=== PATIENT | female | born 1990 | race Caucasian/White ===

== ENCOUNTER → 2021-09-04 17:15 | Outpatient (BNVA) | payer BC, SELFPAY | PROVIDERS: Family Provider Family Medicine; PCP Nurse Practitioner Family; Visit Provider Registered Nurse Neonatal Intensive Care | DX: M79.672 Pain in left foot (principal); R29.898 Other symptoms and signs involving the musculoskeletal system | CPT/HCPCS: 73630 ==

== ENCOUNTER → 2021-09-24 08:08 | Outpatient (BNVA) | payer BC, SELFPAY | PROVIDERS: Family Provider Family Medicine; PCP Nurse Practitioner Family; Visit Provider Podiatrist Foot & Ankle Surgery | DX: M79.672 Pain in left foot (principal) | CPT/HCPCS: 73630 ==

== ENCOUNTER → 2022-10-31 09:58 | Outpatient (BNVA) | payer BC, SELFPAY | PROVIDERS: Family Provider Family Medicine; Visit Provider Nurse Practitioner | DX: R53.83 Other fatigue (principal); F41.9 Anxiety disorder, unspecified; K21.9 Gastro-esophageal reflux disease without esophagitis | CPT/HCPCS: 84443; 85025 ==

== ENCOUNTER → 2024-07-28 10:43 | Outpatient (BNVA) | payer BC, SELFPAY | PROVIDERS: Family Provider Family Medicine; PCP Nurse Practitioner Family; Visit Provider Nurse Practitioner Family | DX: Z13.6 Encounter for screening for cardiovascular disorders (principal); T78.40XA Allergy, unspecified, initial encounter; Z79.899 Other long term (current) drug therapy; Z91.018 Allergy to other foods | CPT/HCPCS: 80053; 80061; 81003; 82785; 83036; 84443; 85025; 86001; 86003 ==

== ENCOUNTER → 2024-08-01 11:28 | Outpatient (BNVA) | payer BC, SELFPAY | PROVIDERS: Family Provider Family Medicine; PCP Nurse Practitioner Family; Visit Provider Nurse Practitioner Family | DX: Z91.018 Allergy to other foods (principal) | CPT/HCPCS: 86003; 86008 ==

== ENCOUNTER → 2024-09-10 17:59 | Outpatient (BNVA) | payer BC, SELFPAY | PROVIDERS: Family Provider Family Medicine; PCP Nurse Practitioner Family; Visit Provider Emergency Medicine | DX: R39.9 Unspecified symptoms and signs involving the genitourinary system (principal) | CPT/HCPCS: 81000 ==

== ENCOUNTER 2025-04-08 06:00 | Emergency (ER) | payer BC, SELFPAY ==
--- OUTSIDE RECORDS SUMMARY | 2025-04-08 06:08 | XMS_ITS | Encounter Summary ---
Author Organization [facility] Address [address] [place] [address] Care Team Providers Care Oncology Physician Name Role Phone María Elena Mckeon MD Primary Care Provider +1- [phone] Encounter Details Date Type Department Care Team (Latest Contact Info) Description 07/30/2005 Outpatient Historical [facility] Family Medicine- [address] [place] [address] Chanelle Koroma, DREA NO ADDRESS ON FILE ACUTE PHARYNGITIS (Primary Dx); LYMPHADENITIS NOS Social History Tobacco Use Types Packs/Day Years Used Date Smoking Tobacco: Never Assessed Comments Unknown Sex and Gender Information Value Date Recorded Sex Assigned at Not on file Legal Sex Female 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
--- OUTSIDE RECORDS SUMMARY | 2025-04-08 06:08 | XMS_ITS | Encounter Summary ---
Author Organization [facility] Address [address] [place] [address] Care Team Providers Care Assistant Associate Full Professor Name Role Phone María Elena Mckeon MD Primary Care Provider +1- [phone] Encounter Details Date Type Department Care Team (Late st Contact Info) Description 06/30/2008 Outpatient [facility] [address] [place] [address] María Elena Mckeon MD [address] [place] [address] State, Incidental Social History Tobacco Use Types Packs/Day Years Used Date Smoking Tobacco: Never Assessed Comments Yes Sex and Gender Information Value Date Recorded Sex Assigned at Not on file Legal 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 Gender Identity Not on file Sexual Orientation Not on file documented as of this encounter Plan of Treatment Not on file documented as of this encounter Procedures Procedure Name Priority Date/Time Associated Diagnosis Comments GC, GENITAL Routine 06/30/2008 2:21 PM CDT CHLAMYDIA, GENITAL Routine 06/30/2008 2: 21 PM CDT PATHOLOGY Routine 06/30/2008 8:42 AM CDT documented in this encounter Results * GC DNA AMPLIFICATION (06/30/2008 2:21 PM CDT) FINAL REPORT DNA Amplification Assay: negative for Neisseria gonorrhoeae The [facility] [employer] CT/NG test by Polymerase Chain Reaction (PCR) is approved for testing only on endocervical and male urethral swab specimens and male urine. The use of specimens from any other body site has not been validated. Detection of Neisseria gonorrhoeae is dependent on the number of organisms present in the specimen. This may be affected by patient factors, stage of infection, specimen collection methods, transport, storage and processing procedures. INTERFACE SYSTEM Specimen from genital system (specimen) CERVIX UTERI STRUCTURE / Unknown 06/30/2008 2:21 PM CDT 07/01/2008 2:56 PM CDT María Elena Mckeon MD MICROBIOLOGY - GENERAL ORD ERABLES Final Result Performing Organization Address [facility] de Phone Number INTERFACE SYSTEM Refer to clinic/hospital department * CHLAMYDIA DNA AMPLIFICATION (06/30/2008 2:21 PM CDT) FINAL REPORT DNA Amplification Assay: negative for Chlamydia trachomatis --------- The [facility] [employer] CT/NG test by Polymerase Chain Reaction (PCR) is approved for testing only on endocervical and male urethral swab specimens and urine. The use of specimens from any other body site has not been validated. Dectection of Chlamadia trachomatis is dependent on the number of organisms present in the specimen. This may be affected by patient factors, stage of infection, specimen collection methods, transport, storage and processing procedures. INTERFACE SYSTEM Specimen from genital system (specimen) CERVIX UTERI STRUCTURE / Unknown 06/30/2008 2:21 PM CDT 07/01/2008 2:56 PM CDT María Elena Mckeon MD MICROBIOLOGY - GENERAL ORD ERABLES Final Result INTERFACE SYSTEM Refer to clinic/hospital department * PATHOLOGY (06/30/2008 8:42 AM CDT) PATHOLOGY/CYT OLOGY REPORT [facility] Anatomic Pathology Dept [address] [address] Patient: ISABELLE TORRES Accn No: [id number] Collected: 06/30/2008 8:42:00 AM CYTOLOGY FIRING PIN GAUGER FINAL REPORT - - THIN PREP PAP History Specimen Source: None Provided LMP: None Provided Last Pap Date: None Provided Specimen Adequacy Satisfactory for interpretation. The smear lacks endocervical or metaplastic cells. Diagnosis NEGATIVE FOR INTRAEPITHELIAL LESION OR MALIGNANCY. (Previously noted as Within Normal Limits) Chemist Biological: REBECA 07/05/08 Completed by: KARLENE ZAFAR BSLEANNE(ASCP) (Electronically signed by) 07/05/08 Comment Repeat Pap smear within 6-12 months. Important Info About PAP Smears HPV Testing off the Thin Prep vial can be done as a means of further evaluating the significance of a Thin Prep Report. For information about ordering the HPV test phone Cytology at . Treatment or follow-up recommendations (if any) that are contained within this report are based upon general recommendations as contained in 2001 Consensus Guidelines For Cervical Cytological Abnormalities [place]: January 26, 2002, and are provided as a general guideline rather than as a specific recommendation. Final decisions about the most appropriate treatment and follow-up should be made on an individualized basis by the treating physician in consultation with his/her patient. INTERFACE SYSTEM 06/30/2008 8:42 AM CDT us María Elena Mckeon MD PATHOLOGY/CYTOLOGY ORDERAB LES Edited INTERFACE SYSTEM Refer to clinic/hospital department documented in this encounter Visit Diagnoses Diagnosis state, incidental documented in this encounter Care Teams Assistant Associate Full Professor Relationship Specialty Start Date End Date María Elena Mckeon MD PCP - General 03/02/09 documented as of this encounter
--- OUTSIDE RECORDS SUMMARY | 2025-04-08 06:08 | XMS_ITS | Encounter Summary ---
Author Organization [facility] Address [address] [place] [address] Care Team Providers Care Color Matcher Name Role Phone María Elena Mckeon MD Primary Care Provider +1- [phone] Encounter Details Date Type Department Care Team (Latest Contact Info) Description 09/09/1999 Outpatient Historical [facility] Medicine [address] [address] Domenic Barton DO NO ADDRESS ON FILE Acute pharyngitis (Primary Dx) Social History Tobacco Use Types Packs/Day Years Used Date Smoking Tobacco: Never Assessed Comments Unknown Sex and Gender Information Value Date Recorded Sex Assigned at Not on file 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
--- OUTSIDE RECORDS SUMMARY | 2025-04-08 06:08 | XMS_ITS | Encounter Summary ---
Author Organization [facility] Address [address] [place] [address] Care Team Providers Care Manager Of International Name Role Phone María Elena Mckeon MD Primary Care Provider +1- [phone] Encounter Details Date Type Department Care Team (Latest Contact Info) Description 05/20/2000 Outpatient Historical [facility] Medicine- [address] [place] [address] Domenic Barton DO NO ADDRESS ON FILE Dermatophytosis of unspecified site (Primary Dx); Viral warts, unspecified; Abnormal weight gain Social History Tobacco Use Types Packs/Day Years Used Date Smoking Tobacco: Never Assessed Comments Unknown Sex and Gender Information Value Date Recorded Sex Assigned at Not on file Legal Sex Female 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
--- OUTSIDE RECORDS SUMMARY | 2025-04-08 06:08 | XMS_ITS | Encounter Summary ---
Author Organization [facility] Address [address] [place] [address] Care Team Providers Care Train Starter Name Role Phone María Elena Mckeon MD Primary Care Provider +1- [phone] Encounter Details Date Type Department Care Team (Latest Contact Info) Description 12/14/2002 Outpatient Historical [facility] Medicine- [address] [place] [address] Domenic Barton DO NO ADDRESS ON FILE SKIN ANOMALY NEC (Primary Dx); ACNE NEC Social History Tobacco Use Types Packs/Day Years Used Date Smoking Tobacco: Never Assessed Comments Unknown Sex and Gender Information Value Date Recorded Sex Assigned at Not on file Legal Sex Female 3:00 AM QUALITY LAB ASSOC Gender Identity Not on file Sexual Orientation Not on file documented as of this encounter Plan of Treatment Not on file documented as of this encounter Visit Diagnoses Diagnosis Other specified congenital anomaly of skin- Primary Other acne documented in this encounter Care Teams Train Starter Relationship Specialty Start Date End Date María Elena Mckeon MD PCP - General 03/02/09 documented as of this encounter
--- OUTSIDE RECORDS SUMMARY | 2025-04-08 06:08 | XMS_ITS | Encounter Summary ---
Author Organization [facility] Address [address] [place] [address] Care Team Providers Care Taffy Candy Maker Name Role Phone María Elena Mckeon MD Primary Care Provider +1- [phone] Encounter Details Date Type Department Care Team (Latest Contact Info) Description 07/25/1999 Outpatient Historical [facility] Medicine [address] [address] Monica Garibay NO ADDRESS ON FILE Head injury, unspecified (Primary Dx) Social History Tobacco Use Types Packs/Day Years Used Date Smoking Tobacco: Never Assessed Comments Unknown Sex and Gender Information Value Date Recorded Sex Assigned at Not on file Legal 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
--- OUTSIDE RECORDS SUMMARY | 2025-04-08 06:08 | XMS_ITS | Encounter Summary ---
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
--- OUTSIDE RECORDS SUMMARY | 2025-04-08 06:08 | XMS_ITS | Encounter Summary ---
Author Organization [facility] Address [address] [place] [address] Care Team Providers Care Builder Operator Name Role Phone María Elena Mckeon MD Primary Care Provider +1- [phone] Encounter Details Date Type Department Care Team (Latest Contact Info) Description 07/21/2005 Outpatient Historical [facility] Medicine [address] [address] Chanelle Koroma NP NO ADDRESS ON FILE ACUTE PHARYNGITIS (Primary Dx); ACUTE SINUSITIS NOS Social History Tobacco Use Types Packs/Day Years Used Date Smoking Tobacco: Never Assessed Comments Unknown Sex and Gender Information Value Date Recorded Sex Assigned at Not on file Legal 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
--- OUTSIDE RECORDS SUMMARY | 2025-04-08 06:08 | XMS_ITS | Encounter Summary ---
Author Organization [facility] Address [address] [place] [address] Care Team Providers Care Large Animal Veterinarian Name Role Phone María Elena Mckeon MD Primary Care Provider +1- [phone] Encounter Details Date Type Department Care Team (Latest Contact Info) Description 09/12/2005 Outpatient Historical [facility] [place] [address] [place] [address] Nic Barton MD NO ADDRESS ON FILE ABDOMINAL PAIN UNSPEC SITE (Primary Dx) Social History Tobacco Use Types Packs/Day Years Used Date Smoking Tobacco: Never Assessed Comments Unknown Sex and Gender Information Value Date Recorded Sex Assigned at Not on file Legal Sex Female 3:00 AM PROMOTIONAL REPRESENTATIVE Gender Identity Not on file Sexual Orientation Not on file documented as of this encounter Plan of Treatment Not on file documented as of this encounter Procedures Procedure Name Priority Date/Time Associated Diagnosis Comments DIFFERENTIAL, MANUAL Routine 09/12/2005 4:25 PM PROMOTIONAL REPRESENTATIVE CBC WITH DIFFERENTIAL Routine 09/12/2005 4:25 PM PROMOTIONAL REPRESENTATIVE SEDIMENTATION RATE Routine 09/12/2005 4: 25 PM PROMOTIONAL REPRESENTATIVE C-REACTIVE PROTEIN Routine 09/12/2005 4: 25 PM PROMOTIONAL REPRESENTATIVE documented in this encounter Results * C-REACTIVE PROTEIN (09/12/2005 4:25 PM PROMOTIONAL REPRESENTATIVE) CRP <0.3 0.0 - 1.0 mg/dL INTERFACE SYSTEM Comment: This is a standard CRP method, and is not intended as a marker for Heart Disease This test cannot be used to assess cardiac risk. As of 05/27/2004, the linearity on CRP has been changed to 0.3-11.0 mg/dl. The past range was 0.7-11.0 mg/dl. 09/12/2005 4:25 PM PROMOTIONAL REPRESENTATIVE Nic Barton MD CHEMISTRY ORDERABLES Final Result Performing Organization Address [facility] Phone Number INTERFACE SYSTEM Refer to clinic/hospital department * DIFFERENTIAL, MANUAL (09/12/2005 4:25 PM PROMOTIONAL REPRESENTATIVE) NEUTROPHILS, SEG 60 36 - 66 % INT ERFACE SYSTEM LYMPHOCYTES 30 24 - 44 % INTERFAC E SYSTEM MONOCYTE 8 4 - 10 % INTERFACE SYSTEM EOSINOPHILS 2 0 - 3 % INTERFAC E SYSTEM PLATELET EST. Normal Normal INTERF SUSANA SYSTEM RBC MORPHOLOGY Normal Normal INTER FACE SYSTEM 09/12/2005 4:25 PM PROMOTIONAL REPRESENTATIVE Nic Barton MD HEMATOLOGY ORDERABLES COM F inal Result Performing Organization Address [facility] Phone Number INTERFACE SYSTEM Refer to clinic/hospital department * SEDIMENTATION RATE (09/12/2005 4:25 PM PROMOTIONAL REPRESENTATIVE) ESR (SEDIMENTATION RATE) 4 0 - 22 mm/hr INTERFACE SYSTEM 09/12/2005 4:25 PM PROMOTIONAL REPRESENTATIVE Nic Barton MD HEMATOLOGY ORDERABLES Final Result Performing Organization Address [facility] Phone Number INTERFACE SYSTEM Refer to clinic/hospital department * (ABNORMAL) CBC WITH DIFFERENTIAL (09/12/2005 4:25 PM PROMOTIONAL REPRESENTATIVE) WBC 8.3 4.5 - 13.5 K/ul INTERFACE SYSTEM RBC 4.55 4.30 - 5.30 Mil/ul INTERFACE SYSTEM HEMOGLOBIN 14.2 12.0 - 16.0 g/dL INTERFACE SYSTEM HEMATOCRIT 40.0 36.0 - 46.0 % INTERFACE SYSTEM MCV 87.9 78.0 - 102.0 Fl INTERFACE SYSTEM MCH 31.2 26.0 - 32.0 pg INTERFACE SYSTEM MCHC 35.5(H) 33.0 - 35.0 g/dL INTERFACE SYSTEM RDW 11.9 11.0 - 14.5 % INTERFACE SYSTEM PLATELETS 329 140 - 440 K/ul INTERFACE SYSTEM MPV 9.5 8.9 - 12.8 Fl INTERFACE SYSTEM NEUTROPHILS 58.9 42.2 - 75.2 % INTERFACE SYSTEM LYMPHOCYTES 31.5 24.0 - 44.0 % INTERFACE SYSTEM MONOCYTES 8.4(H) 4.0 - 5.0 % INTERFACE SYSTEM EOSINOPHILS 0.7 0.0 - 7.0 % INTERFACE SYSTEM BASOPHILS 0.5 0.0 - 1.0 % INTERFACE SYSTEM NEUTROPHIL ABSOLUTE 4.9 2.0 - 8.0 K/uL INTERFACE SYSTEM LYMPHOCYTE ABSOLUTE 2.6 1.2 - 4.0 K/ul INTERFACE SYSTEM MONOCYTE ABSOLUTE 0.7(H) 0.1 - 0.6 K/ul INTERFACE SYSTEM EOSINOPHIL ABSOLUTE 0.1 0.0 - 0.7 K/ul INTERFACE SYSTEM BASOPHILS ABSOLUTE 0.0 0.0 - 0.2 K/ul INTERFACE SYSTEM 09/12/2005 4:25 PM PROMOTIONAL REPRESENTATIVE us Nic Barton MD HEMATOLOGY ORDERABLES Final Result INTERFACE SYSTEM Refer to clinic/hospital department documented in this encounter Visit Diagnoses Diagnosis Abdominal pain, unspecified site- Primary documented in this encounter Care Teams Large Animal Veterinarian Relationship Specialty Start Date End Date María Elena Mckeon MD PCP - General 03/02/09 documented as of this encounter
--- OUTSIDE RECORDS SUMMARY | 2025-04-08 06:08 | XMS_ITS | Encounter Summary ---
Author Organization [facility] Address [address] [place] [address] Care Team Providers Care Wood Experimental Mechanic Name Role Phone María Elena Mckeon MD Primary Care Provider +1- [phone] Encounter Details Date Type Department Care Team (Latest Contact Info) Description 07/03/2006 Outpatient Historical [facility] Medicine [address] [phone] Nima Lynne MD NO ADDRESS ON FILE Unspecified Otitis Media (Primary Dx); Unspecified Infective Otitis Externa; Dysfunct Eustachian Tube Social History Tobacco Use Types Packs/Day Years Used Date Smoking Tobacco: Never Assessed Comments Unknown Sex and Gender Information Value Date Recorded Sex Assigned at Not on file Legal Sex Female 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
--- OUTSIDE RECORDS SUMMARY | 2025-04-08 06:08 | XMS_ITS | Encounter Summary ---
Author Organization [facility] Address [address] [place] [address] Care Team Providers Care Air Force Pilot Name Role Phone María Elena Mckeon MD Primary Care Provider +1- [phone] Encounter Details Date Type Department Care Team (Latest Contact Info) Description 09/21/2002 Outpatient Historical [facility] Family Medicine- [address] [place] [address] Domenic Barton, NO ADDRESS ON FILE Hypertrophy tonsils (Primary Dx) Social History Tobacco Use Types Packs/Day Years Used Date Smoking Tobacco: Never Assessed Comments Unknown Sex and Gender Information Value Date Recorded Sex Assigned at Not on file Legal Sex Female 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
--- OUTSIDE RECORDS SUMMARY | 2025-04-08 06:08 | XMS_ITS | Encounter Summary ---
Author Organization [facility] Address [address] [place] [address] Care Team Providers Care Amphibious Operations Officer Name Role Phone María Elena Mckeon MD Primary Care Provider +1- [phone] Encounter Details Date Type Department Care Team (Latest Contact Info) Description 11/20/2005 Outpatient Historical [facility] Medicine [address] [phone] Arlene Murcia, BUSINESS STRATEGIST [address] [place] [address] ACUTE URI NOS (Primary Dx) Social History Tobacco Use Types Packs/Day Years Used Date Smoking Tobacco: Never Assessed Comments Unknown Sex and Gender Information Value Date Recorded Sex Assigned at Not on file Legal 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
--- OUTSIDE RECORDS SUMMARY | 2025-04-08 06:08 | XMS_ITS | Encounter Summary ---
Author Organization [facility] Address [address] [place] [address] Care Team Providers Care Head Field Hockey Coach Name Role Phone María Elena Mckeon MD Primary Care Provider +1- [phone] Encounter Details Date Type Department Care Team (Latest Contact Info) Description 05/13/[address] [facility] Family Medicine- [address] [place] [address] Monica Garibay NO ADDRESS ON FILE Injury, other and unspecified, elbow, forearm, and wrist (Primary Dx) Social History Tobacco Use Types Packs/Day Years Used Date Smoking Tobacco: Never Assessed Comments Unknown Sex and Gender Information Value Date Recorded Sex Assigned at Not on file Legal Sex Female 3:00 AM AOC OPERATIONS INTELLIGENCE OFFICER Gender Identity Not on file Sexual Orientation Not on file documented as of this encounter Plan of Treatment Not on file documented as of this encounter Visit Diagnoses Diagnosis Injury, other and unspecified, elbow, forearm, and wrist- Primary documented in this encounter Care Teams Head Field Hockey Coach Relationship Specialty Start Date End Date María Elena Mckeon MD PCP - General 03/02/09 documented as of this encounter
--- OUTSIDE RECORDS SUMMARY | 2025-04-08 06:08 | XMS_ITS | Encounter Summary ---
Author Organization [facility] Address [address] [place] [address] Care Team Providers Care Soft Sugar Operator Head Name Role Phone María Elena Mckeon MD Primary Care Provider +1- [phone] Encounter Details Date Type Department Care Team (Latest Contact Info) Description 10/22/1999 Outpatient Historical [facility] Medicine [address] [phone] Nima Villalta MD [address] [facility] [address] [place] [address] Streptococcal sore throat (Primary Dx); Hypertrophy tonsils; Allergic rhinitis, cause unspecified Social History Tobacco Use Types Packs/Day Years Used Date Smoking Tobacco: Never Assessed Comments Unknown Sex and Gender Information Value Date Recorded Sex Assigned at Not on file Legal Sex Female 3:00 AM MANAGEMENT ENGINEER Gender Identity Not on file Sexual Orientation Not on file documented as of this encounter Plan of Treatment Not on file documented as of this encounter Visit Diagnoses Diagnosis Streptococcal sore throat- Primary Hypertrophy tonsils Hypertrophy of tonsils alone Allergic rhinitis, cause unspecified documented in this encounter Care Teams Soft Sugar Operator Head Relationship Specialty Start Date End Date María Elena Mckeon MD PCP - General 03/02/09 documented as of this encounter
--- OUTSIDE RECORDS SUMMARY | 2025-04-08 06:08 | XMS_ITS | Encounter Summary ---
Author Organization [facility] Address [address] [place] [address] Care Team Providers Care Patient Case Coordinator Name Role Phone María Elena Mckeon MD Primary Care Provider +1- [phone] Encounter Details Date Type Department Care Team (Latest Contact Info) Description 08/06/1999 Outpatient Historical [facility] Medicine [address] [address] Domenic Barton DO NO ADDRESS ON FILE Hypertrophy tonsils (Primary Dx); Allergic rhinitis, cause unspecified Social History Tobacco Use Types Packs/Day Years Used Date Smoking Tobacco: Never Assessed Comments Unknown Sex and Gender Information Value Date Recorded Sex Assigned at Not on file Legal Sex Female 3:00 AM MEDIA CONSULTANT OUTSIDE SALES Gender Identity Not on file Sexual Orientation Not on file documented as of this encounter Plan of Treatment Not on file documented as of this encounter Visit Diagnoses Diagnosis Hypertrophy tonsils- Primary Hypertrophy of tonsils alone Allergic rhinitis, cause unspecified documented in this encounter Care Teams Patient Case Coordinator Relationship Specialty Start Date End Date María Elena Mckeon MD PCP - General 03/02/09 documented as of this encounter
--- OUTSIDE RECORDS SUMMARY | 2025-04-08 06:08 | XMS_ITS | Clinical Summary ---
Author Organization [facility] Address [address] Manuel: Epic Prelude ADT [place] PLUMMER [address] Care Team Providers Care Senior Technical Business Analyst Name Role Phone María Elena Mckeon MD Primary Care Provider +1- [phone] Allergies No known active allergies Medications polyethylene glycol 3350 (MIRALAX) 17 gram/dose PowderIndications :Constipation, unspecified constipation type Take 1 SCOOP (17 Grams) by mouth daily Dissolve in 8 ounces of fluid and drink entire liquid. 527 Gram 3 7 Active promethazine (PHENERGAN) 25 mg tablet Take 1 Tablet (25 mg) by mouth every 6 hours as needed for Nausea/Emesis . 30 Tablet 0 7 Active docusate sodium (COLACE) 100 mg capsuleIndication s:Constipation, unspecified constipation type Take 1 Capsule (100 mg) by mouth 2 times daily. 60 Capsule 3 7 Active acetaminophen (TYLENOL) 325 mg tablet Take 325 mg by mouth every 4 hours as needed. 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 Resolved Problems Problem Noted Date Diagnosed Date Resolved Date Encounter for supervision of normal in first trimester 12/19/2016 01/31/2017 Encounter for supervision of normal in first trimester 11/23/2016 12/19/2016 Acne vulgaris 04/12/2015 11/23/2016 Melasma 04/12/2015 12/19/2016 IUD (intrauterine device) in place 09/05/2009 03/27/2014 Overview (01/30/2021): Mirena placed 04/03/09 Well woman exam with routine gynecological exam 09/05/2009 03/27/2014 Contraception 03/06/2009 03/27/2014 Supervision of normal first 07/06/2008 03/06/2009 Encounters Date Type Department Care Team Description 02/14/2025 9:42 PM CDT - 02/14/2025 10:33 PM CDT Emergency [facility] Emergency Medicine [address] [place] [address] Chris Portillo MD Eye pain, left (Primary Dx) Discharge Disposition: Home or Self Care 02/14/2025 Travel from Last 3 Months Immunizations Immunization Administration Dates Next Due (M-M-R II/PRIORIX)(12 MO UP) MEASLES, MUMPS AND RUBELLA VIRUS VACCINE, 0.5 ML IM/SUBCUT 02/16/1991 Dt Dtp Dtap Vaccine 05/26/1995, 1,08/25/1990,1989,02/17/1990 HIB, Unspecified Formulation 05/25/1991 Hepatitis B Vaccine 01/20/2002,08/02/2001,2000 IPV/OPV 02/16/1991,05/05/1990,02/17/1990 Influenza Vaccine Split 3+ Yrs IM 07/28/2008 Family History Medical History Relation Name Comments Healthy Brother 1 Healthy Brother 2 Heart Disease Father MA AGE 40 Other Maternal Grandfather Healthy Maternal Grandmother Other Mother epilepsy Ovarian Cancer Mother Diabetes Other pggm Pggf Heart Disease Paternal Grandfather Other Paternal Grandmother lupus Healthy Son Breast Cancer Neg Hx Colon Cancer Neg Hx Relation Name Status Comments Brother 1 Alive Brother 2 Alive Father Maternal Grandfather Alive Maternal Grandmother Alive Mother Alive Other pggm Pggf Paternal Grandfather Paternal Grandmother Alive Son Alive Social History Tobacco Use Types Packs/Day Years Used Date Smoking Tobacco: Never Smokeless Tobacco: Never Alcohol Use Standard Drinks/Week Comments No 0 (1 standard drink = 0.6 oz pur e alcohol) Feeling Safe Answer Date Recorded Are you in a relationship wi th someone who hurts you emotionally and/or physically? No 02/14/2025 Comments No Sex and Gender Information Value Date Recorded Sex Assigned at Not on file Legal Sex Female 4:10 PM WHISKEY REGAUGER Gender Identity Not on file Sexual Orientation Not on file Last Filed Vital Signs Vital Sign Reading Time Taken Comments Blood Pressure 108/87 02/14/2025 10:27 PM CDT Pulse 85 02/14/2025 10:27 PM CDT Temperature 37.4 C (99.3 F) 02/14/2025 9:44 PM CDT Respiratory Rate 16 02/14/2025 10:27 PM CDT Oxygen Saturation 97% 02/14/2025 10:27 PM CDT Inhaled Oxygen Concentration - - Weight 63 kg (138 lb 12.8 oz) 02/14/2025 9:44 PM CDT Height 157.5 cm (5' 2 ) 02/14/2025 9:44 PM CDT Body Mass Index 25.39 02/14/2025 9:44 PM CDT Plan of Treatment Health Maintenance Due Date Last Done Comments Pre-Diabetes and Diabetes Screening 1989 DTAP/TDAP/TD VACCINES (6 - Tdap) 2000 05/26/1995, 02/16/1991, 08/25/1990, Additional history exists PAP SMEAR 2019 07/16/2015 CERVICAL CANCER SCREENING 07/16/2020 HPV/Cotest (21-29) 07/16/2020 07/16/2015 HPV/Cotest (30-65) 07/16/2020 07/16/2015 INFLUENZA VACCINE (#1) 2025 07/28/2008 HEPATITIS B VACCINES Completed 01/20/2002, 08/02/2001, 06/25/2001 HPV VACCINES Aged Out No longer eligi ble based on patient's age to complete this topic Procedures Procedure Name Priority Date/Time Associated Diagnosis Comments CERV/VAG CYTOPATH, THIN PREP IMAGR RFLX HPV Routine 07/16/2015 10:31 AM CDT from Last 3 Months or Most Recently Relevant to Health Maintenance Results * CERV/VAG CYTOPATH, THIN PREP IMAGR RFLX HPV (07/16/2015 10:31 AM CDT) IH [employer] CONSULT[facility] CYTOLOGY REPORT REFLEX HPV [facility] Pathology Dept [address] [address] Patient: ISABELLE NUNES Accn No: [id number] , [id number] Collected: 07/16/2015 10:31:00 AM All cases except those with a DP prefix are performed by pathologists from [facility] at [facility]. Case type DP is performed by Dr. Pepe Troy, [facility], [facility] [address], [address] [address] (CLIA #[id number]) (Ph. [phone]). [employer] CON[facility] PAP - REFLEX HPV History Specimen Type: Endocervical LMP: 07/14/2015 Previous Pap History: 2008 NIL Specimen Adequacy Satisfactory for interpretation. The smear shows sufficient numbers of endocervical or metaplastic cells. Diagnosis NEGATIVE FOR INTRAEPITHELIAL LESION OR MALIGNANCY. (Previously noted as Within Normal Limits). Pipe Maker/ JMM Pathologist: 07/30/15 Completed by: KARLENE ZAFAR BSCT(ASCP) (Electronically signed by) 07/30/15 Comment Routine follow-up is suggested. Important Information About Pap Smears The Pap smear is associated with a low but well-documented and probably irreducible false negative rate of up to 10%. Additionally, the false positive rate for a diagnosis of invasive carcinoma or HSIL has been estimated to be approximately 1-10%. Therefore, any visible lesion on the cervix should be biopsied regardless of Pap smear findings. HPV Testing off the Thin Prep vial can be done as a means of further evaluating a Thin Prep Report. If you are a physician looking for information on ordering the HPV test, phone Virology at . Treatment or follow-up recommendations (if [...] treating physician in consultation with his/her patient. 07/30/2015 11:39 AM CDT [facility] [employer] [facility] 07/16/2015 10:3 1 AM CDT Narrative [facility] [employer] [facility] - 07/30/2015 11:39 AM CDT Cerner Ordered:IH Hydrographic Engineer Cytology Report Reflex HPV:# Bernie Chavez COMPLAINT INVESTIGATIONS OFFICER PATHOLOGY/CYTOLOGY ORDERABL ES Edited Result - Final [facility] [employer] [facility] CLIA# [id number] [address] [place] [address] [facility] [employer] [facility] CLIA # [id number] [address] [facility] [place] [address] from Last 3 Months or Most Recently Relevant to Health Maintenance [place] [address] [employer] Care Teams Senior Technical Business Analyst Relationship Specialty Start Date End Date María Elena Mckeon MD [address] [place] [address] PCP - General 03/02/09
--- OUTSIDE RECORDS SUMMARY | 2025-04-08 06:08 | XMS_ITS | Encounter Summary ---
Author Organization [facility] Address [address] [place] [address] Care Team Providers Care Detail Supervisor Name Role Phone María Elena Mckeon MD Primary Care Provider +1- [phone] Encounter Details Date Type Department Care Team (Late st Contact Info) Description 08/10/2002 Outpatient Historical [facility] Rajendra Clemons MD [address] [place], [place] [id number] UNSPEC DENTAL CARIES (Primary Dx) Social History Tobacco Use Types Packs/Day Years Used Date Smoking Tobacco: Never Assessed Comments Unknown Sex and Gender Information Value Date Recorded Sex Assigned at Not on file Legal Sex Female 3:00 AM NEGOTIATOR SALES Gender Identity Not on file Sexual Orientation Not on file documented as of this encounter Plan of Treatment Not on file documented as of this encounter Visit Diagnoses Diagnosis Unspecified dental caries- Primary documented in this encounter Care Teams Detail Supervisor Relationship Specialty Start Date End Date María Elena Mckeon MD PCP - General 03/02/09 documented as of this encounter
--- OUTSIDE RECORDS SUMMARY | 2025-04-08 06:08 | XMS_ITS | Encounter Summary ---
Author Organization [facility] Address [address] [place] [address] Care Team Providers Care Environmental Intern Name Role Phone María Elena Mckeon MD Primary Care Provider +1- [phone] Encounter Details Date Type Department Care Team (Latest Contact Info) Description 08/05/2005 Outpatient Historical [facility] Family Medicine- [address] [place] [address] Keny Canseco PA NO ADDRESS ON FILE ACUTE URI NOS (Primary Dx); ALLERGY, UNSPECIFIED Social History Tobacco Use Types Packs/Day Years Used Date Smoking Tobacco: Never Assessed Comments Unknown Sex and Gender Information Value Date Recorded Sex Assigned at Not on file Legal Sex Female 3:00 AM 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
--- OUTSIDE RECORDS SUMMARY | 2025-04-08 06:08 | XMS_ITS | Encounter Summary ---
Author Organization [facility] Address [address] [place] [address] Care Team Providers Care Taper And Floater Name Role Phone María Elena Mckeon MD Primary Care Provider +1- [phone] Encounter Details Date Type Department Care Team (Late st Contact Info) Description 07/28/2002 Outpatient Historical [facility] Rajendra Clemons MD [address] [place], [place] [id number] TOOTH POSITION ANOMALY (Primary Dx); UNSPEC DENTAL CARIES Social History Tobacco Use Types Packs/Day Years Used Date Smoking Tobacco: Never Assessed Comments Unknown Sex and Gender Information Value Date Recorded Sex Assigned at Not on file Legal Sex Female 3:00 AM 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
--- OUTSIDE RECORDS SUMMARY | 2025-04-08 06:08 | XMS_ITS | Encounter Summary ---
Author Organization [facility] Address [address] [place] [address] Care Team Providers Care Carbon Cleaner Name Role Phone María Elena Mckeon MD Primary Care Provider +1- [phone] Encounter Details Date Type Department Care Team (Latest Contact Info) Description 01/02/2000 Outpatient Historical [facility] Medicine [address] [address] Monica Garibay NO ADDRESS ON FILE Acute pharyngitis (Primary Dx); Nasal/sinus dis NEC Social History Tobacco Use Types Packs/Day Years Used Date Smoking Tobacco: Never Assessed Comments Unknown Sex and Gender Information Value Date Recorded Sex Assigned at Not on file Legal Sex Female 3:00 AM WINDOWS TECHNICAL SPECIALIST Gender Identity Not on file Sexual Orientation Not on file documented as of this encounter Plan of Treatment Not on file documented as of this encounter Visit Diagnoses Diagnosis Acute pharyngitis- Primary Nasal/sinus dis NEC Other diseases of nasal cavity and sinuses documented in this encounter Care Teams Carbon Cleaner Relationship Specialty Start Date End Date María Elena Mckeon MD PCP - General 03/02/09 documented as of this encounter
--- OUTSIDE RECORDS SUMMARY | 2025-04-08 06:08 | XMS_ITS | Encounter Summary ---
Author Organization [facility] Address [address] [place] [address] Care Team Providers Care Drying Machine Tender Name Role Phone María Elena Mckeon MD Primary Care Provider +1- [phone] Encounter Details Date Type Department Care Team (Latest Contact Info) Description 08/27/1999 Outpatient Historical [facility] Medicine [address] [phone] Nima Villalta MD [address] [facility] [address] [place] [address] Unspecified gastritis and gastroduodenitis without mention of hemorrhage (Primary Dx); Acute pharyngitis Social History Tobacco Use Types Packs/Day Years Used Date Smoking Tobacco: Never Assessed Comments Unknown Sex and Gender Information Value Date Recorded Sex Assigned at Not on file Legal Sex Female 3:00 AM MEAT HANGER Gender Identity Not on file Sexual Orientation Not on file documented as of this encounter Plan of Treatment Not on file documented as of this encounter Visit Diagnoses Diagnosis Unspecified gastritis and gastroduodenitis without mention of hemorrhage- Primary Acute pharyngitis documented in this encounter Care Teams Drying Machine Tender Relationship Specialty Start Date End Date María Elena Mckeon MD PCP - General 03/02/09 documented as of this encounter
--- OUTSIDE RECORDS SUMMARY | 2025-04-08 06:08 | XMS_ITS | Encounter Summary ---
Author Organization [facility] Address [address] [place] [address] Care Team Providers Care Hearing Aid Specialist Name Role Phone María Elena Mckeon MD Primary Care Provider +1- [phone] Encounter Details Date Type Department Care Team (Latest Contact Info) Description 04/26/2002 Outpatient Historical [facility] Medicine- [place] [address] [place] [address] Domenic Barton DO NO ADDRESS ON FILE VIRAL WARTS NOS (Primary Dx) Social History Tobacco Use Types Packs/Day Years Used Date Smoking Tobacco: Never Assessed Comments Unknown Sex and Gender Information Value Date Recorded Sex Assigned at Not on file Legal Sex Female 3:00 AM SHREDDER OPERATOR Gender Identity Not on file Sexual Orientation Not on file documented as of this encounter Plan of Treatment Not on file documented as of this encounter Visit Diagnoses Diagnosis Viral warts, unspecified- Primary documented in this encounter Care Teams Hearing Aid Specialist Relationship Specialty Start Date End Date María Elena Mckeon MD PCP - General 03/02/09 documented as of this encounter
--- OUTSIDE RECORDS SUMMARY | 2025-04-08 06:08 | XMS_ITS | Encounter Summary ---
Author Organization [facility] Address [address] [place] [address] Care Team Providers Care Wage Adjuster Name Role Phone María Elena Mckeon MD Primary Care Provider +1- [phone] Encounter Details Date Type Department Care Team (Latest Contact Info) Description 09/02/2005 Outpatient Historical [facility] Family Medicine- [address] [place] [address] Domenic Barton DO NO ADDRESS ON FILE ACUTE PHARYNGITIS (Primary Dx) Social History Tobacco Use Types Packs/Day Years Used Date Smoking Tobacco: Never Assessed Comments Unknown Sex and Gender Information Value Date Recorded Sex Assigned at Not on file Legal Sex Female 3:00 AM COMMERCIAL SPECIALIST Gender Identity Not on file Sexual Orientation Not on file documented as of this encounter Plan of Treatment Not on file documented as of this encounter Visit Diagnoses Diagnosis Acute pharyngitis- Primary documented in this encounter Care Teams Wage Adjuster Relationship Specialty Start Date End Date María Elena Mckeon MD PCP - General 03/02/09 documented as of this encounter
--- OUTSIDE RECORDS SUMMARY | 2025-04-08 06:08 | XMS_ITS | Encounter Summary ---
Author Organization [facility] Address [address] [place] [address] Care Team Providers Care Ingredient Scaler Name Role Phone María Elena Mckeon MD Primary Care Provider +1- [phone] Encounter Details Date Type Department Care Team (Latest Contact Info) Description 08/30/2002 Outpatient Historical [facility] Medicine [address] [address] Domenic Barton DO NO ADDRESS ON FILE ACUTE TONSILLITIS (Primary Dx); Hypertrophy tonsils Social History Tobacco Use Types Packs/Day Years Used Date Smoking Tobacco: Never Assessed Comments Unknown Sex and Gender Information Value Date Recorded Sex Assigned at Not on file Legal Sex Female 3:00 AM ANATOMIC PATHOLOGIST Gender Identity Not on file Sexual Orientation Not on file documented as of this encounter Plan of Treatment Not on file documented as of this encounter Visit Diagnoses Diagnosis Acute tonsillitis- Primary Hypertrophy tonsils Hypertrophy of tonsils alone documented in this encounter Care Teams Ingredient Scaler Relationship Specialty Start Date End Date María Elena Mckeon MD PCP - General 03/02/09 documented as of this encounter
--- OUTSIDE RECORDS SUMMARY | 2025-04-08 06:08 | XMS_ITS | Encounter Summary ---
Author Organization [facility] Address [address] [place] [address] Care Team Providers Care Sewer Name Role Phone María Elena Mckeon MD Primary Care Provider +1- [phone] Encounter Details Date Type Department Care Team (Latest Contact Info) Description 09/04/1999 Outpatient Historical [facility] [address] [place] [address] Monica Garibay NO ADDRESS ON FILE Vaginitis and vulvovaginitis, unspecified (Primary Dx); Dysuria Social History Tobacco Use Types Packs/Day Years Used Date Smoking Tobacco: Never Assessed Comments Unknown Sex and Gender Information Value Date Recorded Sex Assigned at Not on file Legal Sex Female 3:00 AM MANAGER INTERVENTIONAL Gender Identity Not on file Sexual Orientation Not on file documented as of this encounter Plan of Treatment Not on file documented as of this encounter Visit Diagnoses Diagnosis Vaginitis and vulvovaginitis, unspecified- Primary Dysuria documented in this encounter Care Teams Sewer Relationship Specialty Start Date End Date María Elena Mckeon MD PCP - General 03/02/09 documented as of this encounter
--- OUTSIDE RECORDS SUMMARY | 2025-04-08 06:08 | XMS_ITS | Encounter Summary ---
Author Organization [facility] Address [address] [place] [address] Care Team Providers Care Label Sewer Name Role Phone María Elena Mckeon MD Primary Care Provider +1- [phone] Encounter Details Date Type Department Care Team (Latest Contact Info) Description 07/14/2005 Outpatient Historical [facility] Medicine [address] [address] Domenic Barton DO NO ADDRESS ON FILE CONSTIPATION NOS (Primary Dx); ABDOMINAL PAIN UNSPEC SITE Social History Tobacco Use Types Packs/Day Years Used Date Smoking Tobacco: Never Assessed Comments Unknown Sex and Gender Information Value Date Recorded Sex Assigned at Not on file Legal Sex Female 3:00 AM DYNAMO REPAIRER Gender Identity Not on file Sexual Orientation Not on file documented as of this encounter Plan of Treatment Not on file documented as of this encounter Visit Diagnoses Diagnosis Unspecified constipation- Primary Abdominal pain, unspecified site documented in this encounter Care Teams Label Sewer Relationship Specialty Start Date End Date María Elena Mckeon MD PCP - General 03/02/09 documented as of this encounter
--- OUTSIDE RECORDS SUMMARY | 2025-04-08 06:08 | XMS_ITS | Encounter Summary ---
Author Organization [facility] Address [address] [place] [address] Care Team Providers Care Supplier Engineer Name Role Phone María Elena Mckeon MD Primary Care Provider +1- [phone] Encounter Details Date Type Department Care Team (Latest Contact Info) Description 07/13/2002 Outpatient Historical [facility] Medicine- [place] [address] [place] [address] Domenic Barton, NO ADDRESS ON FILE ACUTE PHARYNGITIS (Primary Dx); ACUTE TONSILLITIS Social History Tobacco Use Types Packs/Day Years Used Date Smoking Tobacco: Never Assessed Comments Unknown Sex and Gender Information Value Date Recorded Sex Assigned at Not on file Legal Sex Female 3:00 AM LAMP STACK DEVELOPER Gender Identity Not on file Sexual Orientation Not on file documented as of this encounter Plan of Treatment Not on file documented as of this encounter Visit Diagnoses Diagnosis Acute pharyngitis- Primary Acute tonsillitis documented in this encounter Care Teams Supplier Engineer Relationship Specialty Start Date End Date María Elena Mckeon MD PCP - General 03/02/09 documented as of this encounter
--- OUTSIDE RECORDS SUMMARY | 2025-04-08 06:08 | XMS_ITS | Encounter Summary ---
Author Organization [facility] Address [address] [place] [address] Care Team Providers Care Tunnel Heading Supervisor Name Role Phone María Elena Mckeon MD Primary Care Provider +1- [phone] Encounter Details Date Type Department Care Team (Late st Contact Info) Description 09/12/2005 Outpatient [facility] Social History Tobacco Use Types Packs/Day Years Used Date Smoking Tobacco: Never Assessed Comments Unknown Sex and Gender Information Value Date Recorded Sex Assigned at Not on file Legal Sex Female 3:00 AM HEARING IMPAIRED 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
--- OUTSIDE RECORDS SUMMARY | 2025-04-08 06:09 | XMS_ITS | Encounter Summary ---
Author Organization [facility] Address [address] [place] [address] Care Team Providers Care Commercial Construction Estimator Name Role Phone María Elena Mckeon MD Primary Care Provider +1- [phone] Encounter Details Date Type Department Care Team (Latest Contact Info) Description 08/09/2003 Outpatient Historical [facility] Family Medicine- [place] [address] [place] [address] Domenic Barton, NO ADDRESS ON FILE ACUTE PHARYNGITIS (Primary Dx); ACUTE BRONCHITIS Social History Tobacco Use Types Packs/Day Years Used Date Smoking Tobacco: Never Assessed Comments Unknown Sex and Gender Information Value Date Recorded Sex Assigned at Not on file Legal Sex Female 3:00 AM ADVERTISING SALES ASSOCIATE Gender Identity Not on file Sexual Orientation Not on file documented as of this encounter Plan of Treatment Not on file documented as of this encounter Visit Diagnoses Diagnosis Acute pharyngitis- Primary Acute bronchitis documented in this encounter Care Teams Commercial Construction Estimator Relationship Specialty Start Date End Date Maraí Elena Mckeon MD PCP - General 03/02/09 documented as of this encounter
--- OUTSIDE RECORDS SUMMARY | 2025-04-08 06:09 | XMS_ITS | Encounter Summary ---
Author Organization [facility] Address [address] [place] [address] Care Team Providers Care Air Motor Repairer Name Role Phone María Elena Mckeon MD Primary Care Provider +1- [phone] Encounter Details Date Type Department Care Team (Latest Contact Info) Description 12/03/1998 Outpatient Historical [facility] Family Medicine- [place] [address] [place] [address] Domenic Barton, NO ADDRESS ON FILE Acute tonsillitis (Primary Dx); Acute bronchitis Social History Tobacco Use Types Packs/Day Years Used Date Smoking Tobacco: Never Assessed Comments Unknown Sex and Gender Information Value Date Recorded Sex Assigned at Not on file Legal Sex Female 3:00 AM PRIMER CHARGING TOOL SETTER Gender Identity Not on file Sexual Orientation Not on file documented as of this encounter Plan of Treatment Not on file documented as of this encounter Visit Diagnoses Diagnosis Acute tonsillitis- Primary Acute bronchitis documented in this encounter Care Teams Air Motor Repairer Relationship Specialty Start Date End Date María Elena Mckeon MD PCP - General 03/02/09 documented as of this encounter
--- OUTSIDE RECORDS SUMMARY | 2025-04-08 06:09 | XMS_ITS | Encounter Summary ---
Author Organization [facility] Address [address] [place] [address] Care Team Providers Care Bed And Breakfast Operator Name Role Phone María Elena Mckeon MD Primary Care Provider +1- [phone] Encounter Details Date Type Department Care Team (Latest Contact Info) Description 05/03/2001 Outpatient Historical [facility] Family Medicine- [place] [address] [place] [address] Nima Villalta MD [address] [facility] [address] [place] [address] Hemangioma skin (Primary Dx); Unspecified sinusitis (chronic) Social History Tobacco Use Types Packs/Day Years Used Date Smoking Tobacco: Never Assessed Comments Unknown Sex and Gender Information Value Date Recorded Sex Assigned at Not on file Legal Sex Female 3:00 AM NUT SORTER Gender Identity Not on file Sexual Orientation Not on file documented as of this encounter Plan of Treatment Not on file documented as of this encounter Visit Diagnoses Diagnosis Hemangioma skin- Primary Hemangioma of skin and subcutaneous tissue Unspecified sinusitis (chronic) documented in this encounter Care Teams Bed And Breakfast Operator Relationship Specialty Start Date End Date María Elena Mckeon MD PCP - General 03/02/09 documented as of this encounter
--- OUTSIDE RECORDS SUMMARY | 2025-04-08 06:09 | XMS_ITS | Encounter Summary ---
Author Organization [facility] Address [address] [place] [address] Care Team Providers Care Lookback Coordinator Name Role Phone María Elena Mckeon MD Primary Care Provider +1- [phone] Encounter Details Date Type Department Care Team (Latest Contact Info) Description 12/10/2004 Outpatient Historical [facility] [address] [place] [address] AMBULANCE, [facility] VIEW HEADACHE (Primary Dx) Social History Tobacco Use Types Packs/Day Years Used Date Smoking Tobacco: Never Assessed Comments Unknown Sex and Gender Information Value Date Recorded Sex Assigned at Not on file Legal Sex Female 3:00 AM INSIGHTS ANALYST Gender Identity Not on file Sexual Orientation Not on file documented as of this encounter Plan of Treatment Not on file documented as of this encounter Visit Diagnoses Diagnosis Headache(784.0)- Primary Headache documented in this encounter Care Teams Lookback Coordinator Relationship Specialty Start Date End Date María Elena Mckeon MD PCP - General 03/02/09 documented as of this encounter
--- OUTSIDE RECORDS SUMMARY | 2025-04-08 06:09 | XMS_ITS | Encounter Summary ---
Author Organization [facility] Address [address] [place] [address] Care Team Providers Care Hearing Screen Coordinator Name Role Phone María Elena Mckeon MD Primary Care Provider +1- [phone] Encounter Details Date Type Department Care Team (Latest Contact Info) Description 05/15/2003 Outpatient Historical [facility] Family Medicine- [place] [address] [place] [address] Nima Villalta MD [address] [facility] [address] [place] [address] MED EXAM NEC-ADMIN PURP (Primary Dx); POSTSURGICAL STATES NEC Social History Tobacco Use Types Packs/Day Years Used Date Smoking Tobacco: Never Assessed Comments Unknown Sex and Gender Information Value Date Recorded Sex Assigned at Not on file Legal Sex Female 3:00 AM HEAD OF GEOGRAPHY Gender Identity Not on file Sexual Orientation Not on file documented as of this encounter Plan of Treatment Not on file documented as of this encounter Visit Diagnoses Diagnosis Other general medical examination for administrative purposes- Primary Other postprocedural status(V45.89) Other postprocedural status documented in this encounter Care Teams Hearing Screen Coordinator Relationship Specialty Start Date End Date María Elena Mckeon MD PCP - General 03/02/09 documented as of this encounter
--- OUTSIDE RECORDS SUMMARY | 2025-04-08 06:09 | XMS_ITS | Encounter Summary ---
Author Organization [facility] Address [address] [place] [address] Care Team Providers Care Flow Nurse Name Role Phone María Elena Mckeon MD Primary Care Provider +1- [phone] Encounter Details Date Type Department Care Team (Latest Contact Info) Description 06/24/1999 Outpatient Historical [facility] Medicine [address] [place] [address] Nima Villalta MD [address] [facility] [address] [place] [address] Contusion of back(922.31) (Primary Dx) Social History Tobacco Use Types Packs/Day Years Used Date Smoking Tobacco: Never Assessed Comments Unknown Sex and Gender Information Value Date Recorded Sex Assigned at Not on file Legal Sex Female 3:00 AM MANAGER DRILLING Gender Identity Not on file Sexual Orientation Not on file documented as of this encounter Plan of Treatment Not on file documented as of this encounter Visit Diagnoses Diagnosis Contusion of back(922.31)- Primary Contusion of back documented in this encounter Care Teams Flow Nurse Relationship Specialty Start Date End Date María Elena Mckeon MD PCP - General 03/02/09 documented as of this encounter
--- OUTSIDE RECORDS SUMMARY | 2025-04-08 06:09 | XMS_ITS | Encounter Summary ---
Author Organization [facility] Address [address] [place] [address] Care Team Providers Care Casting Finisher Name Role Phone María Elena Mckeon MD Primary Care Provider +1- [phone] Encounter Details Date Type Department Care Team (Latest Contact Info) Description 09/19/1998 Outpatient Historical [facility] [address] [place] [address] Monica Garibay NO ADDRESS ON FILE Acute pharyngitis (Primary Dx); Acute tonsillitis; Acute upper respiratory infections of unspecified site Social History Tobacco Use Types Packs/Day Years Used Date Smoking Tobacco: Never Assessed Comments Unknown Sex and Gender Information Value Date Recorded Sex Assigned at Not on file Legal Sex Female 3: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
--- OUTSIDE RECORDS SUMMARY | 2025-04-08 06:09 | XMS_ITS | Encounter Summary ---
Author Organization [facility] Address [address] [place] [address] Care Team Providers Care Hot Top Liner Name Role Phone María Elena Mckeon MD Primary Care Provider +1- [phone] Encounter Details Date Type Department Care Team (Latest Contact Info) Description 01/11/2003 Outpatient Historical [facility] Family Medicine- [place] [address] [place] [address] Nima Villalta MD [address] [facility] [address] [place] [address] ACUTE TONSILLITIS (Primary Dx); CHRONIC SINUSITIS NOS; ACNE NEC Social History Tobacco Use Types Packs/Day Years Used Date Smoking Tobacco: Never Assessed Comments Unknown Sex and Gender Information Value Date Recorded Sex Assigned at Not on file Legal Sex Female 3:00 AM ANIMAL HUMANE AGENT SUPERVISOR Gender Identity Not on file Sexual Orientation Not on file documented as of this encounter Plan of Treatment Not on file documented as of this encounter Visit Diagnoses Diagnosis Acute tonsillitis- Primary Unspecified sinusitis (chronic) Other acne documented in this encounter Care Teams Hot Top Liner Relationship Specialty Start Date End Date María Elena Mckeon MD PCP - General 03/02/09 documented as of this encounter
--- OUTSIDE RECORDS SUMMARY | 2025-04-08 06:09 | XMS_ITS | Encounter Summary ---
Author Organization [facility] Address [address] [place] [address] Care Team Providers Care Hardener Helper Name Role Phone María Elena Mckeon MD Primary Care Provider +1- [phone] Encounter Details Date Type Department Care Team (Latest Contact Info) Description 09/24/[address] [facility] Medicine [address] [address] Monica Garibay NO ADDRESS ON FILE Dysfunct eustachian tube (Primary Dx); Streptococcal sore throat Social History Tobacco Use Types Packs/Day Years Used Date Smoking Tobacco: Never Assessed Comments Unknown Sex and Gender Information Value Date Recorded Sex Assigned at Not on file Legal Sex Female 3:00 AM CONSULTANT Gender Identity Not on file Sexual Orientation Not on file documented as of this encounter Plan of Treatment Not on file documented as of this encounter Visit Diagnoses Diagnosis Dysfunct eustachian tube- Primary Dysfunction of Eustachian tube Streptococcal sore throat documented in this encounter Care Teams Hardener Helper Relationship Specialty Start Date End Date María Elena Mckeon MD PCP - General 03/02/09 documented as of this encounter
--- OUTSIDE RECORDS SUMMARY | 2025-04-08 06:09 | XMS_ITS | Encounter Summary ---
Author Organization [facility] Address [address] [place] [address] Care Team Providers Care Director Client Services Name Role Phone María Elena Mckeon MD Primary Care Provider +1- [phone] Encounter Details Date Type Department Care Team (Latest Contact Info) Description 05/18/2001 Outpatient Historical [facility] Medicine [address] [address] Nima Villalta MD [address] [facility] [address] [place] [address] Viral warts, unspecified (Primary Dx) Social History Tobacco Use Types Packs/Day Years Used Date Smoking Tobacco: Never Assessed Comments Unknown Sex and Gender Information Value Date Recorded Sex Assigned at Not on file Legal Sex Female 3:[address] Gender Identity Not on file Sexual Orientation Not on file documented as of this encounter Plan of Treatment Not on file documented as of this encounter Visit Diagnoses Diagnosis Viral warts, unspecified- Primary documented in this encounter Care Teams Director Client Services Relationship Specialty Start Date End Date María Elena Mckeon MD PCP - General 03/02/09 documented as of this encounter
--- OUTSIDE RECORDS SUMMARY | 2025-04-08 06:09 | XMS_ITS | Encounter Summary ---
Author Organization [facility] Address [address] [place] [address] Care Team Providers Care Head Scorer Name Role Phone María Elena Mckeon MD Primary Care Provider +1- [phone] Encounter Details Date Type Department Care Team (Latest Contact Info) Description 10/31/1998 Outpatient Historical [facility] Family Medicine- [place] [address] [place] [address] Monica Garibay NO ADDRESS ON FILE Constipation (Primary Dx) Social History Tobacco Use Types Packs/Day Years Used Date Smoking Tobacco: Never Assessed Comments Unknown Sex and Gender Information Value Date Recorded Sex Assigned at Not on file Legal Sex Female 3:00 AM PAINT SPRAY INSPECTOR Gender Identity Not on file Sexual Orientation Not on file documented as of this encounter Plan of Treatment Not on file documented as of this encounter Visit Diagnoses Diagnosis Constipation- Primary documented in this encounter Care Teams Head Scorer Relationship Specialty Start Date End Date María Elena Mckeon MD PCP - General 03/02/09 documented as of this encounter
--- OUTSIDE RECORDS SUMMARY | 2025-04-08 06:09 | XMS_ITS | Encounter Summary ---
Author Organization [facility] Address [address] [place] [address] Care Team Providers Care Cdl Team Truck Driver Name Role Phone María Elena Mckeon MD Primary Care Provider +1- [phone] Encounter Details Date Type Department Care Team (Latest Contact Info) Description 09/10/2000 Outpatient Historical [facility] Medicine [address] [address] Monica Garibay NO ADDRESS ON FILE Streptococcal sore throat (Primary Dx); Hypertrophy tonsils Social History Tobacco Use Types Packs/Day Years Used Date Smoking Tobacco: Never Assessed Comments Unknown Sex and Gender Information Value Date Recorded Sex Assigned at Not on file Legal Sex Female 3:00 AM BRIDGE WELDER Gender Identity Not on file Sexual Orientation Not on file documented as of this encounter Plan of Treatment Not on file documented as of this encounter Visit Diagnoses Diagnosis Streptococcal sore throat- Primary Hypertrophy tonsils Hypertrophy of tonsils alone documented in this encounter Care Teams Cdl Team Truck Driver Relationship Specialty Start Date End Date María Elena Mckeon MD PCP - General 03/02/09 documented as of this encounter
--- OUTSIDE RECORDS SUMMARY | 2025-04-08 06:09 | XMS_ITS | Encounter Summary ---
Author Organization [facility] Address [address] [place] [address] Care Team Providers Care Back Wedger Name Role Phone María Elena Mckeon MD Primary Care Provider +1- [phone] Encounter Details Date Type Department Care Team (Latest Contact Info) Description 12/02/2001 Outpatient Historical [facility] PLASTIC SURGERY Lester Mueller MD NO ADDRESS ON FILE INTEGUMENT TISS SYMP NEC (Primary Dx) Social History Tobacco Use Types Packs/Day Years Used Date Smoking Tobacco: Never Assessed Comments Unknown Sex and Gender Information Value Date Recorded Sex Assigned at Not on file Legal Sex Female 3:00 AM WIRELINE SUPERVISOR Gender Identity Not on file Sexual Orientation Not on file documented as of this encounter Plan of Treatment Not on file documented as of this encounter Visit Diagnoses Diagnosis Other symptoms involving skin and integumentary tissues- Primary documented in this encounter Care Teams Back Wedger Relationship Specialty Start Date End Date María Elena Mckeon MD PCP - General 03/02/09 documented as of this encounter
--- OUTSIDE RECORDS SUMMARY | 2025-04-08 06:09 | XMS_ITS | Encounter Summary ---
Author Organization [facility] Address [address] [place] [address] Care Team Providers Care Representative Government Relations Name Role Phone María Elena Mckeon MD Primary Care Provider +1- [phone] Encounter Details Date Type Department Care Team (Latest Contact Info) Description 10/26/2003 Outpatient Historical [facility] Dermatology- [facility] [place] [address] [place] [address] Jose Quigley MD [address] [place] [address] ACNE NEC (Primary Dx) Social History Tobacco Use Types Packs/Day Years Used Date Smoking Tobacco: Never Assessed Comments Unknown Sex and Gender Information Value Date Recorded Sex Assigned at Not on file Legal Sex Female 3:00 AM ADVERTISING TEACHER Gender Identity Not on file Sexual Orientation Not on file documented as of this encounter Plan of Treatment Not on file documented as of this encounter Visit Diagnoses Diagnosis Other acne- Primary documented in this encounter Care Teams Representative Government Relations Relationship Specialty Start Date End Date María Elena Mckeon MD PCP - General 03/02/09 documented as of this encounter
--- OUTSIDE RECORDS SUMMARY | 2025-04-08 06:09 | XMS_ITS | Encounter Summary ---
Author Organization [facility] Address [address] [place] [address] Care Team Providers Care Forestry Engineer Name Role Phone María Elena Mckeon MD Primary Care Provider +1- [phone] Encounter Details Date Type Department Care Team (Latest Contact Info) Description 04/13/2002 Outpatient Historical [facility] Family Medicine- [place] [address] [place] [address] Nima Villalta MD [address] [facility] [address] [place] [address] ACUTE BRONCHITIS (Primary Dx); ACUTE PHARYNGITIS Social History Tobacco Use Types Packs/Day Years Used Date Smoking Tobacco: Never Assessed Comments Unknown Sex and Gender Information Value Date Recorded Sex Assigned at Not on file Legal Sex Female 3:00 AM HIMS MANAGER Gender Identity Not on file Sexual Orientation Not on file documented as of this encounter Plan of Treatment Not on file documented as of this encounter Visit Diagnoses Diagnosis Acute bronchitis- Primary Acute pharyngitis documented in this encounter Care Teams Forestry Engineer Relationship Specialty Start Date End Date María Elena Mckeon MD PCP - General 03/02/09 documented as of this encounter
--- OUTSIDE RECORDS SUMMARY | 2025-04-08 06:09 | XMS_ITS | Encounter Summary ---
Author Organization [facility] Address [address] [place] [address] Care Team Providers Care Supervisor Instant Potato Processing Name Role Phone María Elena Mckeon MD Primary Care Provider +1- [phone] Encounter Details Date Type Department Care Team (Latest Contact Info) Description 09/09/2001 Outpatient Historical [facility] Dermatology- [facility] [address] [place] [address] Jose Quigley MD [address] [place] [address] SKIN ANOMALY NEC (Primary Dx); BENIGN CHERRIE SKIN FACE NEC Social History Tobacco Use Types Packs/Day Years Used Date Smoking Tobacco: Never Assessed Comments Unknown Sex and Gender Information Value Date Recorded Sex Assigned at Not on file Legal Sex Female 3:00 AM LENS COATER Gender Identity Not on file Sexual Orientation Not on file documented as of this encounter Plan of Treatment Not on file documented as of this encounter Visit Diagnoses Diagnosis 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
--- OUTSIDE RECORDS SUMMARY | 2025-04-08 06:09 | XMS_ITS | Encounter Summary ---
Author Organization [facility] Address [address] [place] [address] Care Team Providers Care Cotton Converter Name Role Phone María Elena Mckeon MD Primary Care Provider +1- [phone] Encounter Details Date Type Department Care Team (Latest Contact Info) Description 12/08/2001 Outpatient Historical [facility] PLASTIC SURGERY Lester Mueller MD NO ADDRESS ON FILE POSTSURG AFTERCARE OTHER SPECIFIED (Primary Dx) Social History Tobacco Use Types Packs/Day Years Used Date Smoking Tobacco: Never Assessed Comments Unknown Sex and Gender Information Value Date Recorded Sex Assigned at Not on file Legal Sex Female 3:00 AM TALENT SPECIALIST Gender Identity Not on file Sexual Orientation Not on file documented as of this encounter Plan of Treatment Not on file documented as of this encounter Visit Diagnoses Diagnosis Other specified aftercare following surgery- Primary documented in this encounter Care Teams Cotton Converter Relationship Specialty Start Date End Date María Elena Mckeon MD PCP - General 03/02/09 documented as of this encounter
--- OUTSIDE RECORDS SUMMARY | 2025-04-08 06:09 | XMS_ITS | Encounter Summary ---
Author Organization [facility] Address [address] [place] [address] Care Team Providers Care Waste Reclaimer Name Role Phone María Elena Mckeon MD Primary Care Provider +1- [phone] Encounter Details Date Type Department Care Team (Latest Contact Info) Description 06/18/2005 Outpatient Historical [facility] Medicine- [address] [place] [address] Chanelle Koroma, DREA NO ADDRESS ON FILE HEADACHE (Primary Dx); CONSTIPATION NOS; Diverticulosis of colon Social History Tobacco Use Types Packs/Day Years Used Date Smoking Tobacco: Never Assessed Comments Unknown Sex and Gender Information Value Date Recorded Sex Assigned at Not on file Legal Sex Female 3:00 AM PARTY DIRECTOR Gender Identity Not on file Sexual Orientation Not on file documented as of this encounter Plan of Treatment Not on file documented as of this encounter Visit Diagnoses Diagnosis Headache(784.0)- Primary Headache Unspecified constipation Diverticulosis of colon Diverticulosis of colon (without mention of hemorrhage) documented in this encounter Care Teams Waste Reclaimer Relationship Specialty Start Date End Date María Elena Mckeon MD PCP - General 03/02/09 documented as of this encounter
--- OUTSIDE RECORDS SUMMARY | 2025-04-08 06:09 | XMS_ITS | Encounter Summary ---
Author Organization [facility] Address [address] [place] [address] Care Team Providers Care Fly Rail Operator Name Role Phone María Elena Mckeon MD Primary Care Provider +1- [phone] Encounter Details Date Type Department Care Team (Latest Contact Info) Description 08/05/[address] [facility] Medicine [address] [phone] Ifrah Travis MD NO ADDRESS ON FILE ACUTE SINUSITIS NOS (Primary Dx); ACUTE TONSILLITIS Social History Tobacco Use Types Packs/Day Years Used Date Smoking Tobacco: Never Assessed Comments Unknown Sex and Gender Information Value Date Recorded Sex Assigned at Not on file Legal Sex Female 3:00 AM RETAIL SERVICE LEAD MERCHANDISER Gender Identity Not on file Sexual Orientation Not on file documented as of this encounter Plan of Treatment Not on file documented as of this encounter Visit Diagnoses Diagnosis Acute sinusitis, unspecified- Primary Acute tonsillitis documented in this encounter Care Teams Fly Rail Operator Relationship Specialty Start Date End Date María Elena Mckeon MD PCP - General 03/02/09 documented as of this encounter
--- OUTSIDE RECORDS SUMMARY | 2025-04-08 06:09 | XMS_ITS | Encounter Summary ---
Author Organization [facility] Address [address] [place] [address] Care Team Providers Care Christmas Tree Farm Manager Name Role Phone María Elena Mckeon MD Primary Care Provider +1- [phone] Encounter Details Date Type Department Care Team (Latest Contact Info) Description 01/04/2001 Outpatient Historical [facility] Family Medicine- [place] [address] [place] [address] Nima Villalta MD [address] [facility] [address] [place] [phone] Acute upper respiratory infections of unspecified site (Primary Dx); Acute tonsillitis Social History Tobacco Use Types Packs/Day Years Used Date Smoking Tobacco: Never Assessed Comments Unknown Sex and Gender Information Value Date Recorded Sex Assigned at Not on file Legal Sex Female 3:00 AM LEVEL VIAL INSIDE GRINDER Gender Identity Not on file Sexual Orientation Not on file documented as of this encounter Plan of Treatment Not on file documented as of this encounter Visit Diagnoses Diagnosis Acute upper respiratory infections of unspecified site- Primary Acute tonsillitis documented in this encounter Care Teams Christmas Tree Farm Manager Relationship Specialty Start Date End Date María Elena Mckeon MD PCP - General 03/02/09 documented as of this encounter
--- OUTSIDE RECORDS SUMMARY | 2025-04-08 06:09 | XMS_ITS | Encounter Summary ---
Author Organization [facility] Address [address] [place] [address] Care Team Providers Care Medical Imaging Specialist Name Role Phone María Elena Mckeon MD Primary Care Provider +1- [phone] Encounter Details Date Type Department Care Team (Late st Contact Info) Description 05/04/2001 Outpatient Historical [facility] Rajendra Clemons MD [address] [place], [place] [id number] Dental caries (Primary Dx) Social History Tobacco Use Types Packs/Day Years Used Date Smoking Tobacco: Never Assessed Comments Unknown Sex and Gender Information Value Date Recorded Sex Assigned at Not on file Legal Sex Female 3:00 AM ASSISTANT SITE MANAGER Gender Identity Not on file Sexual Orientation Not on file documented as of this encounter Plan of Treatment Not on file documented as of this encounter Visit Diagnoses Diagnosis Dental caries- Primary documented in this encounter Care Teams Medical Imaging Specialist Relationship Specialty Start Date End Date María Elena Mckeon MD PCP - General 03/02/09 documented as of this encounter
--- OUTSIDE RECORDS SUMMARY | 2025-04-08 06:09 | XMS_ITS | Encounter Summary ---
Author Organization [facility] Address [address] [place] [address] Care Team Providers Care Processor Grain Name Role Phone María Elena Mckeon MD Primary Care Provider +1- [phone] Encounter Details Date Type Department Care Team (Late st Contact Info) Description 04/29/2001 Outpatient Historical [facility] Rajendra Clemons MD [address] [place], [place] [id number] Dental caries (Primary Dx) Social History Tobacco Use Types Packs/Day Years Used Date Smoking Tobacco: Never Assessed Comments Unknown Sex and Gender Information Value Date Recorded Sex Assigned at Not on file Legal Sex Female 3:00 AM PLATFORM LOADER Gender Identity Not on file Sexual Orientation Not on file documented as of this encounter Plan of Treatment Not on file documented as of this encounter Visit Diagnoses Diagnosis Dental caries- Primary documented in this encounter Care Teams Processor Grain Relationship Specialty Start Date End Date María Elena Mckeon MD PCP - General 03/02/09 documented as of this encounter
--- OUTSIDE RECORDS SUMMARY | 2025-04-08 06:09 | XMS_ITS | Encounter Summary ---
Author Organization [facility] Address [address] [place] [address] Care Team Providers Care Wash Oil Cooler Operator Name Role Phone María Elena Mckeon MD Primary Care Provider +1- [phone] Encounter Details Date Type Department Care Team (Latest Contact Info) Description 06/10/2005 Outpatient Historical [facility] Medicine- [place] [address] [place] [address] Keny Canseco, PA NO ADDRESS ON FILE CONSTIPATION NOS (Primary Dx); ALOPECIA NOS; MALAISE AND FATIGUE NEC Social History Tobacco Use Types Packs/Day Years Used Date Smoking Tobacco: Never Assessed Comments Unknown Sex and Gender Information Value Date Recorded Sex Assigned at Not on file Legal Sex Female 3:00 AM HVAC JOURNEYMAN Gender Identity Not on file Sexual Orientation Not on file documented as of this encounter Plan of Treatment Not on file documented as of this encounter Visit Diagnoses Diagnosis Unspecified constipation- Primary Alopecia, unspecified Other malaise and fatigue documented in this encounter Care Teams Wash Oil Cooler Operator Relationship Specialty Start Date End Date María Elena Mckeon MD PCP - General 03/02/09 documented as of this encounter
--- OUTSIDE RECORDS SUMMARY | 2025-04-08 06:09 | XMS_ITS | Encounter Summary ---
Author Organization [facility] Address [address] [place] [address] Care Team Providers Care Hospital Cleaner Name Role Phone María Elena Mckeon MD Primary Care Provider +1- [phone] Encounter Details Date Type Department Care Team (Latest Contact Info) Description 06/11/2005 Outpatient Historical [facility] Family Medicine- [address] [place] [address] Chanelle Koroma NP NO ADDRESS ON FILE ABDOMINAL PAIN UNSPEC SITE (Primary Dx); CONSTIPATION NOS Social History Tobacco Use Types Packs/Day Years Used Date Smoking Tobacco: Never Assessed Comments Unknown Sex and Gender Information Value Date Recorded Sex Assigned at Not on file Legal Sex Female 3:00 AM STAFF DEVELOPMENT EDUCATOR Gender Identity Not on file Sexual Orientation Not on file documented as of this encounter Plan of Treatment Not on file documented as of this encounter Visit Diagnoses Diagnosis Abdominal pain, unspecified site- Primary Unspecified constipation documented in this encounter Care Teams Hospital Cleaner Relationship Specialty Start Date End Date María Elena Mckeon MD PCP - General 03/02/09 documented as of this encounter
--- OUTSIDE RECORDS SUMMARY | 2025-04-08 06:09 | XMS_ITS | Encounter Summary ---
Author Organization [facility] Address [address] [place] [address] Care Team Providers Care Bundle Tier And Labeler Name Role Phone María Elena Mckeon MD Primary Care Provider +1- [phone] Encounter Details Date Type Department Care Team (Latest Contact Info) Description 08/11/2001 Outpatient Historical [facility] Dermatology- [facility] [place] [address] [place] [address] Jose Quigley MD [address] [place] [address] BENIGN CHERRIE SKIN FACE NEC (Primary Dx) Social History Tobacco Use Types Packs/Day Years Used Date Smoking Tobacco: Never Assessed Comments Unknown Sex and Gender Information Value Date Recorded Sex Assigned at Not on file Legal Sex Female 3:00 AM TRIAGE REGISTERED NURSE Gender Identity Not on file Sexual Orientation Not on file documented as of this encounter Plan of Treatment Not on file documented as of this encounter Visit Diagnoses Diagnosis Benign neoplasm of skin of other and unspecified parts of face- Primary documented in this encounter Care Teams Bundle Tier And Labeler Relationship Specialty Start Date End Date María Elena Mckeon MD PCP - General 03/02/09 documented as of this encounter
--- OUTSIDE RECORDS SUMMARY | 2025-04-08 06:09 | XMS_ITS | Encounter Summary ---
Author Organization [facility] Address [address] [place] [address] Care Team Providers Care Flat Breakdown Processor Name Role Phone María Elena Mckeon MD Primary Care Provider +1- [phone] Encounter Details Date Type Department Care Team (Latest Contact Info) Description 11/04/2000 Outpatient Historical [facility] Medicine- [place] [address] [place] [address] Domenic Barton, NO ADDRESS ON FILE Acute tonsillitis (Primary Dx); Urinary tract infection, site not specified; Influenza with other respiratory manifestations Social History Tobacco Use Types Packs/Day Years Used Date Smoking Tobacco: Never Assessed Comments Unknown Sex and Gender Information Value Date Recorded Sex Assigned at Not on file Legal Sex Female 3:00 AM TELEGRAPH REPEATER MECHANIC Gender Identity Not on file Sexual Orientation Not on file documented as of this encounter Plan of Treatment Not on file documented as of this encounter Visit Diagnoses Diagnosis Acute tonsillitis- Primary Urinary tract infection, site not specified Influenza with other respiratory manifestations documented in this encounter Care Teams Flat Breakdown Processor Relationship Specialty Start Date End Date María Elena Mckeon MD PCP - General 03/02/09 documented as of this encounter
--- OUTSIDE RECORDS SUMMARY | 2025-04-08 06:09 | XMS_ITS | Encounter Summary ---
Author Organization [facility] Address [address] [place] [address] Care Team Providers Care Leather Coverer Name Role Phone María Elena Mckeon MD Primary Care Provider +1- [phone] Encounter Details Date Type Department Care Team (Latest Contact Info) Description 01/23/2004 Outpatient Historical [facility] Medicine- [place] [address] [place] [address] Keny Canseco PA NO ADDRESS ON FILE ACUTE PHARYNGITIS (Primary Dx); ACUTE URI NOS Social History Tobacco Use Types Packs/Day Years Used Date Smoking Tobacco: Never Assessed Comments Unknown Sex and Gender Information Value Date Recorded Sex Assigned at Not on file Legal Sex Female 3:00 AM CORPORATE COMMUNICATIONS SPECIALIST Gender Identity Not on file Sexual Orientation Not on file documented as of this encounter Plan of Treatment Not on file documented as of this encounter Visit Diagnoses Diagnosis Acute pharyngitis- Primary Acute upper respiratory infections of unspecified site documented in this encounter Care Teams Leather Coverer Relationship Specialty Start Date End Date María Elena Mckeon MD PCP - General 03/02/09 documented as of this encounter
--- OUTSIDE RECORDS SUMMARY | 2025-04-08 06:09 | XMS_ITS | Encounter Summary ---
Author Organization [facility] Address [address] [place] [address] Care Team Providers Care Theater Projectionist Name Role Phone María Elena Mckeon MD Primary Care Provider +1- [phone] Encounter Details Date Type Department Care Team (Latest Contact Info) Description 09/18/2003 Outpatient Historical [facility] Medicine [address] [id number] Nima Villalta MD [address] [facility] [address] [place] [address] ACUTE PHARYNGITIS (Primary Dx); MYCOPLASMA/EATON'S/P PLO INFECTION; ACUTE BRONCHITIS Social History Tobacco Use Types Packs/Day Years Used Date Smoking Tobacco: Never Assessed Comments Unknown Sex and Gender Information Value Date Recorded Sex Assigned at Not on file Legal Sex Female 3:00 AM MUSEUM SERVICE SCHEDULER Gender Identity Not on file Sexual Orientation Not on file documented as of this encounter Plan of Treatment Not on file documented as of this encounter Visit Diagnoses Diagnosis Acute pharyngitis- Primary Mycoplasma infection in conditions classified elsewhere and of unspecified site Acute bronchitis documented in this encounter Care Teams Theater Projectionist Relationship Specialty Start Date End Date María Elena Mckeon MD PCP - General 03/02/09 documented as of this encounter
--- OUTSIDE RECORDS SUMMARY | 2025-04-08 06:09 | XMS_ITS | Encounter Summary ---
Author Organization [facility] Address [address] [place] [address] Care Team Providers Care Dietary Services Director Name Role Phone María Elena Mckeon MD Primary Care Provider +1- [phone] Encounter Details Date Type Department Care Team (Latest Contact Info) Description 06/13/2005 Outpatient Historical [facility] Medicine [address] [address] Chanelle Koroma NP NO ADDRESS ON FILE Diverticulosis of colon (Primary Dx) Social History Tobacco Use Types Packs/Day Years Used Date Smoking Tobacco: Never Assessed Comments Unknown Sex and Gender Information Value Date Recorded Sex Assigned at Not on file Legal Sex Female 3:00 AM ROVING DEPARTMENT SUPERVISOR Gender Identity Not on file Sexual Orientation Not on file documented as of this encounter Plan of Treatment Not on file documented as of this encounter Visit Diagnoses Diagnosis Diverticulosis of colon- Primary Diverticulosis of colon (without mention of hemorrhage) documented in this encounter Care Teams Dietary Services Director Relationship Specialty Start Date End Date María Elena Mckeon MD PCP - General 03/02/09 documented as of this encounter
--- OUTSIDE RECORDS SUMMARY | 2025-04-08 06:09 | XMS_ITS | Encounter Summary ---
Author Organization [facility] Address [address] [place] [address] Care Team Providers Care Diplomatic Interpreter Name Role Phone MaríaE lena Mckeon MD Primary Care Provider +1- [phone] Encounter Details Date Type Department Care Team (Latest Contact Info) Description 09/25/2003 Outpatient Historical [facility] Family Medicine- [place] [address] [place] [address] Nima Villalta MD [address] [facility] [address] [place] [phone] OTITIS MEDIA NOS (Primary Dx); INFEC OTITIS EXTERNA NOS Social History Tobacco Use Types Packs/Day Years Used Date Smoking Tobacco: Never Assessed Comments Unknown Sex and Gender Information Value Date Recorded Sex Assigned at Not on file Legal Sex Female 3:00 AM SPORTS TEAM MARKETING INTERN Gender Identity Not on file Sexual Orientation Not on file documented as of this encounter Plan of Treatment Not on file documented as of this encounter Visit Diagnoses Diagnosis Unspecified otitis media- Primary Infective otitis externa, unspecified documented in this encounter Care Teams Diplomatic Interpreter Relationship Specialty Start Date End Date María Elena Mckeon MD PCP - General 03/02/09 documented as of this encounter
--- OUTSIDE RECORDS SUMMARY | 2025-04-08 06:09 | XMS_ITS | Encounter Summary ---
Author Organization [facility] Address [address] [place] [address] Care Team Providers Care Maintenance Repairer Name Role Phone María Elena Mckeon MD Primary Care Provider +1- [phone] Encounter Details Date Type Department Care Team (Latest Contact Info) Description 06/23/2005 Outpatient Historical [facility] Medicine- [place] [address] [place] [address] Domenic Barton DO NO ADDRESS ON FILE ABDOMINAL PAIN UNSPEC SITE (Primary Dx); CONSTIPATION NOS; HEADACHE Social History Tobacco Use Types Packs/Day Years Used Date Smoking Tobacco: Never Assessed Comments Unknown Sex and Gender Information Value Date Recorded Sex Assigned at Not on file Legal Sex Female 3:00 AM SCREED OPERATOR Gender Identity Not on file Sexual Orientation Not on file documented as of this encounter Plan of Treatment Not on file documented as of this encounter Visit Diagnoses Diagnosis Abdominal pain, unspecified site- Primary Unspecified constipation Headache(784.0) Headache documented in this encounter Care Teams Maintenance Repairer Relationship Specialty Start Date End Date María Elena Mckeon MD PCP - General 03/02/09 documented as of this encounter
--- OUTSIDE RECORDS SUMMARY | 2025-04-08 06:09 | XMS_ITS | Encounter Summary ---
Author Organization [facility] Address [address] [place] [address] Care Team Providers Care Sustainable Design Consultant Name Role Phone María Elena Mckeon MD Primary Care Provider +1- [phone] Encounter Details Date Type Department Care Team (Late st Contact Info) Description 06/12/2005 Outpatient Historical [facility] Chanelle Koroma NP NO ADDRESS ON FILE Social History Tobacco Use Types Packs/Day Years Used Date Smoking Tobacco: Never Assessed Comments Unknown Sex and Gender Information Value Date Recorded Sex Assigned at Not on file Legal Sex Female 3:00 AM DEPUTY SHERIFF CUSTODY Gender Identity Not on file Sexual Orientation Not on file documented as of this encounter Plan of Treatment Not on file documented as of this encounter Visit Diagnoses Not on filedocumented in this encounter Care Teams Sustainable Design Consultant Relationship Specialty Start Date End Date María Elena Mckeon MD PCP - General 03/02/09 documented as of this encounter
--- OUTSIDE RECORDS SUMMARY | 2025-04-08 06:09 | XMS_ITS | Encounter Summary ---
Author Organization [facility] Address [address] [place] [address] Care Team Providers Care Electrophysiology Technologist Name Role Phone María Elena Mckeon MD Primary Care Provider +1- [phone] Encounter Details Date Type Department Care Team (Latest Contact Info) Description 07/25/1998 Outpatient Historical [facility] Family Medicine- [place] [address] [place] [address] Monica Garibay NO ADDRESS ON FILE Open wound of jaw (Primary Dx) Social History Tobacco Use Types Packs/Day Years Used Date Smoking Tobacco: Never Assessed Comments Unknown Sex and Gender Information Value Date Recorded Sex Assigned at Not on file Legal Sex Female 3:00 AM INDOOR PLANT TECHNICIAN Gender Identity Not on file Sexual Orientation Not on file documented as of this encounter Plan of Treatment Not on file documented as of this encounter Visit Diagnoses Diagnosis Open wound of jaw- Primary Open wound of jaw, without mention of complication documented in this encounter Care Teams Electrophysiology Technologist Relationship Specialty Start Date End Date María Elena Mckeon MD PCP - General 03/02/09 documented as of this encounter
--- OUTSIDE RECORDS SUMMARY | 2025-04-08 06:09 | XMS_ITS | Encounter Summary ---
Author Organization [facility] Address [address] [place] [address] Care Team Providers Care Machine Whitener Name Role Phone María Elena Mckeon MD Primary Care Provider +1- [phone] Encounter Details Date Type Department Care Team (Latest Contact Info) Description 07/01/2000 Outpatient Historical [facility] Family Medicine- [place] [address] [place] [address] Monica Garibay NO ADDRESS ON FILE Unspecified viral infection, in conditions classified elsewhere and of unspecified site (Primary Dx); Allergic rhinitis, cause unspecified; Abdominal pain, unspecified site; Acute pharyngitis Social History Tobacco Use Types Packs/Day Years Used Date Smoking Tobacco: Never Assessed Comments Unknown Sex and Gender Information Value Date Recorded Sex Assigned at Not on file Legal Sex Female 3:00 AM ETL ARCHITECT Gender Identity Not on file Sexual Orientation Not on file documented as of this encounter Plan of Treatment Not on file documented as of this encounter Visit Diagnoses Diagnosis Unspecified viral infection, in conditions classified elsewhere and of unspecified site- Primary Allergic rhinitis, cause unspecified Abdominal pain, unspecified site Acute pharyngitis documented in this encounter Care Teams Machine Whitener Relationship Specialty Start Date End Date María Elena Mckeon MD PCP - General 03/02/09 documented as of this encounter
--- OUTSIDE RECORDS SUMMARY | 2025-04-08 06:09 | XMS_ITS | Encounter Summary ---
Author Organization [facility] Address [address] [place] [address] Care Team Providers Care Database Marketing Analyst Name Role Phone María Elena Mckeon MD Primary Care Provider +1- [phone] Encounter Details Date Type Department Care Team (Latest Contact Info) Description 03/27/1999 Outpatient Historical [facility] Family Medicine- [place] [address] [place] [address] Monica Garibay NO ADDRESS ON FILE Hypertrophy tonsils (Primary Dx); Infective otitis externa, unspecified Social History Tobacco Use Types Packs/Day Years Used Date Smoking Tobacco: Never Assessed Comments Unknown Sex and Gender Information Value Date Recorded Sex Assigned at Not on file Legal Sex Female 3:00 AM REGIONAL SALES ENGINEER Gender Identity Not on file Sexual Orientation Not on file documented as of this encounter Plan of Treatment Not on file documented as of this encounter Visit Diagnoses Diagnosis Hypertrophy tonsils- Primary Hypertrophy of tonsils alone Infective otitis externa, unspecified documented in this encounter Care Teams Database Marketing Analyst Relationship Specialty Start Date End Date María Elena Mckeon MD PCP - General 03/02/09 documented as of this encounter
--- OUTSIDE RECORDS SUMMARY | 2025-04-08 06:09 | XMS_ITS | Encounter Summary ---
Author Organization [facility] Address [address] [place] [address] Care Team Providers Care Property Staff Accountant Name Role Phone María Elena Mckeon MD Primary Care Provider +1- [phone] Encounter Details Date Type Department Care Team (Latest Contact Info) Description 02/19/[address] [facility] Medicine- [place] [address] [place] [address] Ifrah Travis MD NO ADDRESS ON FILE ALLERGIC RHINITIS NOS (Primary Dx); ACUTE URI NOS Social History Tobacco Use Types Packs/Day Years Used Date Smoking Tobacco: Never Assessed Comments Unknown Sex and Gender Information Value Date Recorded Sex Assigned at Not on file Legal Sex Female 3:00 AM BAR PILOT Gender Identity Not on file Sexual Orientation Not on file documented as of this encounter Plan of Treatment Not on file documented as of this encounter Visit Diagnoses Diagnosis Allergic rhinitis, cause unspecified- Primary Acute upper respiratory infections of unspecified site documented in this encounter Care Teams Property Staff Accountant Relationship Specialty Start Date End Date María Elena Mckeon MD PCP - General 03/02/09 documented as of this encounter
--- OUTSIDE RECORDS SUMMARY | 2025-04-08 06:09 | XMS_ITS | Encounter Summary ---
Author Organization [facility] Address [address] [place] [address] Care Team Providers Care Billboard Erector Name Role Phone María Elena Mckeon MD Primary Care Provider +1- [phone] Encounter Details Date Type Department Care Team (Latest Contact Info) Description 10/17/2002 Outpatient Historical [facility] Medicine [address] [phone] Nima Villalta MD [address] [facility] [address] [place] [address] ACUTE TONSILLITIS (Primary Dx); ACUTE BRONCHITIS Social History Tobacco Use Types Packs/Day Years Used Date Smoking Tobacco: Never Assessed Comments Unknown Sex and Gender Information Value Date Recorded Sex Assigned at Not on file Legal Sex Female 3:00 AM ARMHOLE FELLER HANDSTITCHING MACHINE Gender Identity Not on file Sexual Orientation Not on file documented as of this encounter Plan of Treatment Not on file documented as of this encounter Visit Diagnoses Diagnosis Acute tonsillitis- Primary Acute bronchitis documented in this encounter Care Teams Billboard Erector Relationship Specialty Start Date End Date María Elena Mckeon MD PCP - General 03/02/09 documented as of this encounter
--- OUTSIDE RECORDS SUMMARY | 2025-04-08 06:09 | XMS_ITS | Encounter Summary ---
Author Organization [facility] Address [address] [place] [address] Care Team Providers Care Helmet Coverer Name Role Phone María Elena Mckeon MD Primary Care Provider +1- [phone] Encounter Details Date Type Department Care Team (Latest Contact Info) Description 05/23/2005 Outpatient Historical [facility] Medicine- [address] [place] [address] Ifrah Travis MD NO ADDRESS ON FILE ESOPHAGEAL REFLUX (Primary Dx); GASTRITIS/DUODEN NOS W/O HEMORRH Social History Tobacco Use Types Packs/Day Years Used Date Smoking Tobacco: Never Assessed Comments Unknown Sex and Gender Information Value Date Recorded Sex Assigned at Not on file Legal Sex Female 3:00 AM MANAGER MAINTENANCE Gender Identity Not on file Sexual Orientation Not on file documented as of this encounter Plan of Treatment Not on file documented as of this encounter Visit Diagnoses Diagnosis Esophageal reflux- Primary Unspecified gastritis and gastroduodenitis without mention of hemorrhage documented in this encounter Care Teams Helmet Coverer Relationship Specialty Start Date End Date María Elena Mckeon MD PCP - General 03/02/09 documented as of this encounter
--- OUTSIDE RECORDS SUMMARY | 2025-04-08 06:09 | XMS_ITS | Encounter Summary ---
Author Organization [facility] Address [address] [place] [address] Care Team Providers Care Senior Accounts Payable Clerk Name Role Phone María Elena Mckeon MD Primary Care Provider +1- [phone] Encounter Details Date Type Department Care Team (Latest Contact Info) Description 11/22/1998 Outpatient Historical [facility] Medicine [address] [address] Monica Garibay NO ADDRESS ON FILE Acute tonsillitis (Primary Dx) Social History Tobacco Use Types Packs/Day Years Used Date Smoking Tobacco: Never Assessed Comments Unknown Sex and Gender Information Value Date Recorded Sex Assigned at Not on file Legal Sex Female 3:00 AM MAIL ROOM CLERK Gender Identity Not on file Sexual Orientation Not on file documented as of this encounter Plan of Treatment Not on file documented as of this encounter Visit Diagnoses Diagnosis Acute tonsillitis- Primary documented in this encounter Care Teams Senior Accounts Payable Clerk Relationship Specialty Start Date End Date María Elena Mckeon MD PCP - General 03/02/09 documented as of this encounter
--- OUTSIDE RECORDS SUMMARY | 2025-04-08 06:09 | XMS_ITS | Encounter Summary ---
Author Organization [facility] Address [address] [place] [address] Care Team Providers Care Security System Engineer Name Role Phone María Elena Mckeon MD Primary Care Provider +1- [phone] Encounter Details Date Type Department Care Team (Latest Contact Info) Description 07/30/[address] [facility] Medicine [address] [address] Domenic Barton DO NO ADDRESS ON FILE Attention to dressings and sutures (Primary Dx) Social History Tobacco Use Types Packs/Day Years Used Date Smoking Tobacco: Never Assessed Comments Unknown Sex and Gender Information Value Date Recorded Sex Assigned at Not on file Legal Sex Female 3:00 AM ELEVATOR SERVICE MECHANIC Gender Identity Not on file Sexual Orientation Not on file documented as of this encounter Plan of Treatment Not on file documented as of this encounter Visit Diagnoses Diagnosis Attention to dressings and sutures- Primary documented in this encounter Care Teams Security System Engineer Relationship Specialty Start Date End Date María Elena Mckeon MD PCP - General 03/02/09 documented as of this encounter
--- OUTSIDE RECORDS SUMMARY | 2025-04-08 06:09 | XMS_ITS | Encounter Summary ---
Author Organization [facility] Address [address] [facility] Attn: Epic Prelude ADT [place] [address] Care Team Providers Care Orthopedic Cast Specialist Name Role Phone María Elena Mckeon MD Primary Care Provider +1- [phone] Encounter Details Date Type Department Care Team (Late st Contact Info) Description 09/10/2001 Outpatient Historical Jose Quigley MD [address] [phone] Social History Tobacco Use Types Packs/Day Years Used Date Smoking Tobacco: Never Assessed Comments Unknown Sex and Gender Information Value Date Recorded Sex Assigned at Not on file Legal Sex Female 3:00 AM MICROSOFT BI CONSULTANT Gender Identity Not on file Sexual Orientation Not on file documented as of this encounter Plan of Treatment Not on file documented as of this encounter Visit Diagnoses Not on filedocumented in this encounter Care Teams Orthopedic Cast Specialist Relationship Specialty Start Date End Date María Elena Mckeon MD PCP - General 03/02/09 documented as of this encounter
--- OUTSIDE RECORDS SUMMARY | 2025-04-08 06:09 | XMS_ITS | Encounter Summary ---
Author Organization [facility] Address [address] [place] [address] Care Team Providers Care Assistant Professor Of Economics Name Role Phone María Elena Mckeon MD Primary Care Provider +1- [phone] Encounter Details Date Type Department Care Team (Late st Contact Info) Description 11/08/2004 Outpatient Historical [facility] Nima Lynne MD NO ADDRESS ON FILE Social History Tobacco Use Types Packs/Day Years Used Date Smoking Tobacco: Never Assessed Comments Unknown Sex and Gender Information Value Date Recorded Sex Assigned at Not on file Legal Sex Female 3:00 AM ELECTRICITY TRADER Gender Identity Not on file Sexual Orientation Not on file documented as of this encounter Plan of Treatment Not on file documented as of this encounter Visit Diagnoses Not on filedocumented in this encounter Care Teams Assistant Professor Of Economics Relationship Specialty Start Date End Date María Elena Mckeon MD PCP - General 03/02/09 documented as of this encounter
--- OUTSIDE RECORDS SUMMARY | 2025-04-08 06:09 | XMS_ITS | Encounter Summary ---
Author Organization [facility] Address [address] [place] [address] Care Team Providers Care Setter Out Name Role Phone María Elena Mckeon MD Primary Care Provider +1- [phone] Encounter Details Date Type Department Care Team (Latest Contact Info) Description 04/25/2004 Outpatient Historical [facility] Medicine [address] [address] Chanelle Koroma NP NO ADDRESS ON FILE DYSURIA (Primary Dx); VIRAL WARTS NOS Social History Tobacco Use Types Packs/Day Years Used Date Smoking Tobacco: Never Assessed Comments Unknown Sex and Gender Information Value Date Recorded Sex Assigned at Not on file Legal Sex Female 3: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
--- OUTSIDE RECORDS SUMMARY | 2025-04-08 06:09 | XMS_ITS | Clinical Summary ---
Author Organization [facility] Address [address] [place] [address] Care Team Providers Care Oxygen Therapy Teacher Name Role Phone María Elena Mckeon MD Primary Care Provider +1- [phone] Allergies No known active allergies Medications promethazine (PHENERGAN) 25 mg tablet Take 1 Tablet (25 mg) by mouth every 6 hours as needed for Nausea/Emesis . 30 Tablet 7 Active acetaminophen (TYLENOL) 325 mg tablet Take 325 mg by mouth every 4 hours as needed. Active polyethylene glycol 3350 (MIRALAX) 17 gram/dose PowderIndications :Constipation, unspecified constipation type Take 1 SCOOP (17 Grams) by mouth daily Dissolve in 8 ounces of fluid and drink entire liquid. 527 Gram 3 7 Active docusate sodium (COLACE) 100 mg capsuleIndication s:Constipation, unspecified constipation type Take 1 Capsule (100 mg) by mouth 2 times daily. 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 Resolved Problems Problem Noted Date Diagnosed Date Resolved Date Encounter for supervision of normal in first trimester 12/19/2016 01/31/2017 Encounter for supervision of normal in first trimester 11/23/2016 12/19/2016 Acne vulgaris 04/12/2015 11/23/2016 Melasma 04/12/2015 12/19/2016 IUD (intrauterine device) in place 09/05/2009 03/27/2014 Overview (09/05/2009): Mirena placed 04/03/09 Well woman exam with routine gynecological exam 09/05/2009 03/27/2014 Contraception 03/06/2009 03/27/2014 Supervision of normal first 07/06/2008 03/06/2009 Immunizations Immunization Administration Dates Next Due (M-M-R II/PRIORIX)(12 MO UP) MEASLES, MUMPS AND RUBELLA VIRUS VACCINE, 0.5 ML IM/SUBCUT 02/16/1991 Dt Dtp Dtap Vaccine 05/26/1995, 1,08/25/1990,1989,02/17/1990 HIB, Unspecified Formulation 05/25/1991 Hepatitis B Vaccine 01/20/2002,08/02/2001,2000 IPV/OPV 02/16/1991,05/05/1990,02/17/1990 Influenza Vaccine Split 3+ Yrs IM 07/28/2008 Family History Medical History Relation Name Comments Healthy Brother 1 Healthy Brother 2 Heart Disease Father [place] AGE 40 Other Maternal Grandfather Healthy Maternal Grandmother Other Mother epilepsy Ovarian Cancer Mother Diabetes Other pggm,Pggf Heart Disease Paternal Grandfather Other Paternal Grandmother lupus Healthy Son Breast Cancer Neg Hx Colon Cancer Neg Hx Relation Name Status Comments Brother 1 Alive Brother 2 Alive Father Maternal Grandfather Alive Maternal Grandmother Alive Mother Alive Other pggm,Pggf Paternal Grandfather Paternal Grandmother Alive Son Alive Social History Tobacco Use Types Packs/Day Years Used Date Smoking Tobacco: Never Smokeless Tobacco: Never Alcohol Use Standard Drinks/Week Comments No 0 (1 standard drink = 0.6 oz pur e alcohol) Comments No Sex and Gender Information Value Date Recorded Sex Assigned at Not on file Legal Sex Female 3:00 AM FLOWER ARRANGER Gender Identity Not on file Sexual Orientation Not on file Occupation Industry Job Start Date Job End Date Not on file Not on file Not on file Not on file Last Filed Vital Signs Vital Sign Reading Time Taken Comments Blood Pressure 112/56 01/26/2017 8:36 AM CDT Pulse 112 01/14/2017 11:05 AM CDT Temperature 36.8 C (98.2 F) 01/14/2017 11:05 AM CDT Respiratory Rate 18 01/14/2017 11:05 AM CDT Oxygen Saturation 98% 01/14/2017 11:05 AM CDT Inhaled Oxygen Concentration - - Weight 68.8 kg (151 lb 9.6 oz) 01/26/2017 8:36 A M CDT Height 157.5 cm (5' 2 ) 01/26/2017 8:36 AM CDT Body Mass Index 27.73 01/26/2017 8:36 AM CDT Plan of Treatment Health Maintenance Due Date Last Done Comments DTAP/TDAP/TD VACCINES (6 - Tdap) 2000 05/26/1995, 02/16/1991, 08/25/1990, Additional history exists PAP SMEAR 2019 07/16/2015, 08/27/2009 CERVICAL CANCER SCREENING 07/16/2020 HPV/Cotest (21-29) 07/16/2020 [...] RFLX HPV (07/16/2015 10:31 AM CDT) I[facility] GENERAL UTILITY WORKER CYTOLOGY REPORT REFLEX HPV [facility] Anatomic Pathology Dept [facility] [address] [facility] [address] Patient: ISABELLE NUNES Accn No: [id number] , [id number] Collected: 07/16/2015 10:31:00 AM All cases except those with a DP prefix are performed by pathologists from [facility] at [facility]. Case type DP is performed by Dr. Pepe Troy, [facility], [facility], [address], [address], [place] [address] (CLIA #[id number]) (Ph. [phone]). GENERAL UTILITY WORKER PAP - REFLEX HPV History Specimen Type: Endocervical LMP: 07/14/2015 Previous Pap History: 2009 NIL Specimen Adequacy Satisfactory for interpretation. The smear shows sufficient numbers of endocervical or metaplastic cells. Diagnosis NEGATIVE FOR INTRAEPITHELIAL LESION OR MALIGNANCY. (Previously noted as Within Normal Limits). Contact Lens Blocker And Cutter/ REBECA Pathologist: 07/30/15 Completed by: KARLENE ZAFAR(ASCP) (Electronically signed by) 07/30/15 Comment Routine follow-up [...] treating physician in consultation with his/her patient. [facility] 07/16/2015 10:3 1 AM CDT Bernie Chavez NP PATHOLOGY/CYTOLOGY ORDERABL ES Edited Result - Final [facility] CLIA# [id number] [address] [place], [place] [address] from Last 3 Months or Most Recently Relevant to Health Maintenance Insurance [employer] [facility] Care Teams Oxygen Therapy Teacher Relationship Specialty Start Date End Date María Elena Mckeon MD PCP - General 03/02/09
--- OUTSIDE RECORDS SUMMARY | 2025-04-08 06:09 | XMS_ITS | Encounter Summary ---
Author Organization [facility] Address [address] [place] [address] Care Team Providers Care Steel Loader Name Role Phone María Elena Mckeon MD Primary Care Provider +1- [phone] Encounter Details Date Type Department Care Team (Latest Contact Info) Description 12/22/2001 Outpatient Historical [facility] Medicine- [address] [place] [address] Ifrah Travis MD NO ADDRESS ON FILE ACUTE SINUSITIS NOS (Primary Dx); ACUTE TONSILLITIS Social History Tobacco Use Types Packs/Day Years Used Date Smoking Tobacco: Never Assessed Comments Unknown Sex and Gender Information Value Date Recorded Sex Assigned at Not on file Legal Sex Female 3:00 AM TEXTILE KNITTER Gender Identity Not on file Sexual Orientation Not on file documented as of this encounter Plan of Treatment Not on file documented as of this encounter Visit Diagnoses Diagnosis Acute sinusitis, unspecified- Primary Acute tonsillitis documented in this encounter Care Teams Steel Loader Relationship Specialty Start Date End Date María Elena Mckeon MD PCP - General 03/02/09 documented as of this encounter
--- OUTSIDE RECORDS SUMMARY | 2025-04-08 06:09 | XMS_ITS | Encounter Summary ---
Author Organization [facility] Address [address] [facility] Attn: Epic Prelude ADT [place] [address] Care Team Providers Care Friction Welding Machine Operator Name Role Phone María Elena Mckeon MD Primary Care Provider +1- [phone] Encounter Details Date Type Department Care Team (Late st Contact Info) Description 12/02/2001 Outpatient Historical Lester Mueller MD NO ADDRESS ON FILE Social History Tobacco Use Types Packs/Day Years Used Date Smoking Tobacco: Never Assessed Comments Unknown Sex and Gender Information Value Date Recorded Sex Assigned at Not on file Legal Sex Female 3:00 AM SIFTING OPERATOR Gender Identity Not on file Sexual Orientation Not on file documented as of this encounter Plan of Treatment Not on file documented as of this encounter Visit Diagnoses Not on filedocumented in this encounter Care Teams Friction Welding Machine Operator Relationship Specialty Start Date End Date María Elena Mckeon MD PCP - General 03/02/09 documented as of this encounter
--- OUTSIDE RECORDS SUMMARY | 2025-04-08 06:09 | XMS_ITS | Encounter Summary ---
Author Organization [facility] Address [address] [place] [address] Care Team Providers Care Shrimping Boat Captain Name Role Phone María Elena Mckeon MD Primary Care Provider +1- [phone] Encounter Details Date Type Department Care Team (Latest Contact Info) Description 05/27/1999 Outpatient Historical [facility] Medicine [address] [phone] Nima Villalta MD [address] [facility] [address] [place] [address] Acute pharyngitis (Primary Dx) Social History Tobacco Use Types Packs/Day Years Used Date Smoking Tobacco: Never Assessed Comments Unknown Sex and Gender Information Value Date Recorded Sex Assigned at Not on file Legal Sex Female 3:00 AM MINE WEDGE SAWYER Gender Identity Not on file Sexual Orientation Not on file documented as of this encounter Plan of Treatment Not on file documented as of this encounter Visit Diagnoses Diagnosis Acute pharyngitis- Primary documented in this encounter Care Teams Shrimping Boat Captain Relationship Specialty Start Date End Date María Elena Mckeon MD PCP - General 03/02/09 documented as of this encounter
--- OUTSIDE RECORDS SUMMARY | 2025-04-08 06:09 | XMS_ITS | Encounter Summary ---
Author Organization [facility] Address [address] [place] [address] Care Team Providers Care Internal Communications Writer Name Role Phone María Elena Mckeon MD Primary Care Provider +1- [phone] Encounter Details Date Type Department Care Team (Latest Contact Info) Description 09/22/2003 Outpatient Historical [facility] Medicine [address] [address] Ifrah Travis MD NO ADDRESS ON FILE OTITIS MEDIA NOS (Primary Dx) Social History Tobacco Use Types Packs/Day Years Used Date Smoking Tobacco: Never Assessed Comments Unknown Sex and Gender Information Value Date Recorded Sex Assigned at Not on file Legal Sex Female 3:00 AM DIVINITY TEACHER Gender Identity Not on file Sexual Orientation Not on file documented as of this encounter Plan of Treatment Not on file documented as of this encounter Visit Diagnoses Diagnosis Unspecified otitis media- Primary documented in this encounter Care Teams Internal Communications Writer Relationship Specialty Start Date End Date María Elena Mckeon MD PCP - General 03/02/09 documented as of this encounter
--- OUTSIDE RECORDS SUMMARY | 2025-04-08 06:09 | XMS_ITS | Encounter Summary ---
Author Organization [facility] Address [address] [place] [address] Care Team Providers Care Private Branch Exchange Installer Name Role Phone María Elena Mckeon MD Primary Care Provider +1- [phone] Encounter Details Date Type Department Care Team (Latest Contact Info) Description 05/04/2000 Outpatient Historical [facility] Medicine [address] [phone] Nima Villalta MD [address] [facility] [address] [place] [address] Acute pharyngitis (Primary Dx); Rash and other nonspecific skin eruption Social History Tobacco Use Types Packs/Day Years Used Date Smoking Tobacco: Never Assessed Comments Unknown Sex and Gender Information Value Date Recorded Sex Assigned at Not on file Legal Sex Female 3:00 AM UNSTACKER Gender Identity Not on file Sexual Orientation Not on file documented as of this encounter Plan of Treatment Not on file documented as of this encounter Visit Diagnoses Diagnosis Acute pharyngitis- Primary Rash and other nonspecific skin eruption documented in this encounter Care Teams Private Branch Exchange Installer Relationship Specialty Start Date End Date María Elena Mckeon MD PCP - General 03/02/09 documented as of this encounter
--- OUTSIDE RECORDS SUMMARY | 2025-04-08 06:09 | XMS_ITS | Encounter Summary ---
Author Organization [facility] Address [address] [place] [address] Care Team Providers Care Coin Rolling Machine Operator Name Role Phone María Elena Mckeon MD Primary Care Provider +1- [phone] Encounter Details Date Type Department Care Team (Latest Contact Info) Description 08/21/1998 Outpatient Historical [facility] Medicine [address] [address] Domenic Barton DO NO ADDRESS ON FILE Head injury, unspecified (Primary Dx) Social History Tobacco Use Types Packs/Day Years Used Date Smoking Tobacco: Never Assessed Comments Unknown Sex and Gender Information Value Date Recorded Sex Assigned at Not on file Legal Sex Female 3:00 AM SYSTEM SUPPORT SPECIALIST Gender Identity Not on file Sexual Orientation Not on file documented as of this encounter Plan of Treatment Not on file documented as of this encounter Visit Diagnoses Diagnosis Head injury, unspecified- Primary documented in this encounter Care Teams Coin Rolling Machine Operator Relationship Specialty Start Date End Date María Elena Mckeon MD PCP - General 03/02/09 documented as of this encounter
--- OUTSIDE RECORDS SUMMARY | 2025-04-08 06:09 | XMS_ITS | Encounter Summary ---
Author Organization [facility] Address [address] [place] [address] Care Team Providers Care Needle Punch Operator Name Role Phone María Elena Mckeon MD Primary Care Provider +1- [phone] Encounter Details Date Type Department Care Team (Latest Contact Info) Description 02/03/2002 Outpatient Historical [facility] Medicine [address] [address] Ifrah Travis MD NO ADDRESS ON FILE VIRAL WARTS NOS (Primary Dx); DYSCHROMIA UNSPECIFIED Social History Tobacco Use Types Packs/Day Years Used Date Smoking Tobacco: Never Assessed Comments Unknown Sex and Gender Information Value Date Recorded Sex Assigned at Not on file Legal Sex Female 3:00 AM ROTARY DRILL OPERATOR HELPER Gender Identity Not on file Sexual Orientation Not on file documented as of this encounter Plan of Treatment Not on file documented as of this encounter Visit Diagnoses Diagnosis Viral warts, unspecified- Primary Dyschromia, unspecified documented in this encounter Care Teams Needle Punch Operator Relationship Specialty Start Date End Date María Elena Mckeon MD PCP - General 03/02/09 documented as of this encounter
--- OUTSIDE RECORDS SUMMARY | 2025-04-08 06:09 | XMS_ITS | Encounter Summary ---
Author Organization [facility] Address [address] [place] [address] Care Team Providers Care Bleach Boiler Puller Name Role Phone María Elena Mckeon MD Primary Care Provider +1- [phone] Encounter Details Date Type Department Care Team (Latest Contact Info) Description 11/06/1999 Outpatient Historical [facility] Medicine- [address] [place] [address] Domenic Barton DO NO ADDRESS ON FILE Streptococcal sore throat (Primary Dx); Unspecified sinusitis (chronic) Social History Tobacco Use Types Packs/Day Years Used Date Smoking Tobacco: Never Assessed Comments Unknown Sex and Gender Information Value Date Recorded Sex Assigned at Not on file Legal Sex Female 3:00 AM PASTRY COOK Gender Identity Not on file Sexual Orientation Not on file documented as of this encounter Plan of Treatment Not on file documented as of this encounter Visit Diagnoses Diagnosis Streptococcal sore throat- Primary Unspecified sinusitis (chronic) documented in this encounter Care Teams Bleach Boiler Puller Relationship Specialty Start Date End Date María Elena Mckeon MD PCP - General 03/02/09 documented as of this encounter
--- OUTSIDE RECORDS SUMMARY | 2025-04-08 06:09 | XMS_ITS | Encounter Summary ---
Author Organization [facility] Address [address] [place] [address] Care Team Providers Care Cdl Driver Name Role Phone María Elena Mckeon MD Primary Care Provider +1- [phone] Encounter Details Date Type Department Care Team (Latest Contact Info) Description 10/14/2001 Outpatient Historical [facility] Lester Mueller MD NO ADDRESS ON FILE INTEGUMENT TISS SYMP NEC (Primary Dx) Social History Tobacco Use Types Packs/Day Years Used Date Smoking Tobacco: Never Assessed Comments Unknown Sex and Gender Information Value Date Recorded Sex Assigned at Not on file Legal Sex Female 3:00 AM LABORATORY MONITOR Gender Identity Not on file Sexual Orientation Not on file documented as of this encounter Plan of Treatment Not on file documented as of this encounter Visit Diagnoses Diagnosis Other symptoms involving skin and integumentary tissues- Primary documented in this encounter Care Teams Cdl Driver Relationship Specialty Start Date End Date María Elena Mckeon MD PCP - General 03/02/09 documented as of this encounter
--- OUTSIDE RECORDS SUMMARY | 2025-04-08 06:09 | XMS_ITS | Encounter Summary ---
Author Organization [facility] Address [address] [place] [address] Care Team Providers Care Household Assistant Name Role Phone María Elena Mckeon MD Primary Care Provider +1- [phone] Encounter Details Date Type Department Care Team (Latest Contact Info) Description 08/03/2000 Outpatient Historical [facility] Medicine [place] [address] [facility] [address] [place] [address] Nima Villalta MD [address] [facility] [address] [place] [address] Superficial injury of cornea (Primary Dx) Social History Tobacco Use Types Packs/Day Years Used Date Smoking Tobacco: Never Assessed Comments Unknown Sex and Gender Information Value Date Recorded Sex Assigned at Not on file Legal Sex Female 3:00 AM CATHETERIZATION LABORATORY TECHNICIAN Gender Identity Not on file Sexual Orientation Not on file documented as of this encounter Plan of Treatment Not on file documented as of this encounter Visit Diagnoses Diagnosis Superficial injury of cornea- Primary documented in this encounter Care Teams Household Assistant Relationship Specialty Start Date End Date María Elena Mckeon MD PCP - General 03/02/09 documented as of this encounter
--- OUTSIDE RECORDS SUMMARY | 2025-04-08 06:09 | XMS_ITS | Encounter Summary ---
Author Organization [facility] Address [address] [place] [address] Care Team Providers Care Marketing Communications Specialist Name Role Phone María Elena Mckeon MD Primary Care Provider +1- [phone] Encounter Details Date Type Department Care Team (Latest Contact Info) Description 07/26/2001 Outpatient Historical [facility] Medicine- [place] [address] [place] [address] Nima Villalta MD [address] [facility] [address] [place] [id number] Nausea with vomiting (Primary Dx); Hypertrophy tonsils Social History Tobacco Use Types Packs/Day Years Used Date Smoking Tobacco: Never Assessed Comments Unknown Sex and Gender Information Value Date Recorded Sex Assigned at Not on file Legal Sex Female 3:00 AM FOOD CASHIER Gender Identity Not on file Sexual Orientation Not on file documented as of this encounter Plan of Treatment Not on file documented as of this encounter Visit Diagnoses Diagnosis Nausea with vomiting- Primary Hypertrophy tonsils Hypertrophy of tonsils alone documented in this encounter Care Teams Marketing Communications Specialist Relationship Specialty Start Date End Date María Elena Mckeon MD PCP - General 03/02/09 documented as of this encounter
--- OUTSIDE RECORDS SUMMARY | 2025-04-08 06:09 | XMS_ITS | Encounter Summary ---
Author Organization [facility] Address [address] [place] [address] Care Team Providers Care Aircraft Instrument Repairer Name Role Phone María Elena Mckeon MD Primary Care Provider +1- [phone] Encounter Details Date Type Department Care Team (Latest Contact Info) Description 09/14/[address] [facility] [address] [address] Ifrah Travis MD NO ADDRESS ON FILE UNSPECIFIED VIRAL INFECTION (Primary Dx) Social History Tobacco Use Types Packs/Day Years Used Date Smoking Tobacco: Never Assessed Comments Unknown Sex and Gender Information Value Date Recorded Sex Assigned at Not on file Legal Sex Female 3:00 AM ELEVATOR MECHANIC APPRENTICE Gender Identity Not on file Sexual Orientation Not on file documented as of this encounter Plan of Treatment Not on file documented as of this encounter Visit Diagnoses Diagnosis Unspecified viral infection, in conditions classified elsewhere and of unspecified site- Primary documented in this encounter Care Teams Aircraft Instrument Repairer Relationship Specialty Start Date End Date María Elena Mckeon MD PCP - General 03/02/09 documented as of this encounter
--- OUTSIDE RECORDS SUMMARY | 2025-04-08 06:09 | XMS_ITS | Encounter Summary ---
Author Organization [facility] Address [address] [place] [address] Care Team Providers Care Market Research Specialist Name Role Phone María Elena Mckeon MD Primary Care Provider +1- [phone] Encounter Details Date Type Department Care Team (Late st Contact Info) Description 07/07/2005 Outpatient Historical [facility] Social History Tobacco Use Types Packs/Day Years Used Date Smoking Tobacco: Never Assessed Comments Unknown Sex and Gender Information Value Date Recorded Sex Assigned at Not on file Legal Sex Female 3:00 AM ONLINE MARKETING MANAGER Gender Identity Not on file Sexual Orientation Not on file documented as of this encounter Plan of Treatment Not on file documented as of this encounter Visit Diagnoses Not on filedocumented in this encounter Care Teams Market Research Specialist Relationship Specialty Start Date End Date María Elena Mckeon MD PCP - General 03/02/09 documented as of this encounter
--- OUTSIDE RECORDS SUMMARY | 2025-04-08 06:09 | XMS_ITS | Encounter Summary ---
Author Organization [facility] Address [address] [place] [address] Care Team Providers Care Stores Assistant Name Role Phone María Elena Mckeon MD Primary Care Provider +1- [phone] Encounter Details Date Type Department Care Team (Latest Contact Info) Description 07/25/2003 Outpatient Historical [facility] Dermatology- [facility] [place] [address] [place] [address] Jose Quigley MD [address] [place] [address] ACNE NEC (Primary Dx) Social History Tobacco Use Types Packs/Day Years Used Date Smoking Tobacco: Never Assessed Comments Unknown Sex and Gender Information Value Date Recorded Sex Assigned at Not on file 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
[2025-04-08 06:14] VITALS: BP 100/82; PULSE 86; RESP 20; TEMP 36.6; O2SAT 96; BMI 24.7
--- NOTE | 2025-04-08 06:38 | ED_ITS ---
HPI - Abdominal Pain 2 General: Chief Complaint: Abdominal Pain Stated Complaint: Upper Middle ABD pain N/V Time Seen by Provider: 04/08/25 06:19 History of Present Illness: 34-year-old female presents emergency ro om complaining of epigastric right upper quadrant pain began around 1:00 yesterday has been persistent she has had some nausea and vomiting she is been diagnosed with alpha gal in the past she intermittently has abdominal cramping and discomfort. She denies any medication melena hematemesis coffee-ground emesis no previous abdominal surgeries. No dysuria urgency or frequency no hematuria. Her last period was couple weeks ago and was normal she does not believe she is Associated Symptoms: Reports nausea and vomiting; Denies chills, coffee ground emesis, dysuria, fever(s), hematochezia, hematemesis and melena Related Data Home Medications ?Medication ?Instructions ?Recorded ?Confirmed Lactobacillus acidophilus 10 10,000 mmu cells PO DAILY 04/08/25 04/08/25 billion cell capsule (Probiotic) multivitamin-ferrous 1 tab PO DAILY 04/08/2502/26 fumarate-folic acid 18 mg-400 mcg tablet (Women's Daily Multivitamin) Previous Rx's ?Medication ?Instructions ?Recorded citalopram 20 mg tablet 20 mg PO DAILY #90 tabs 04/27 pantoprazole 40 mg tablet,delayed 40 mg PO DAILY #30 t abs 04/08/25 release Allergies Allergy/AdvReac Type Severity Reaction Status Date / Time Alpha-Gal Allergy Intermediate Unknown Verified 08/14/24 18:07 (Oitoiuzer-Chqrm-3,3-Gala Kiwi Allergy Severe ALGY-Hives Uncoded 08/11/24 16:15 Review of Systems 2 Const: Denies: fever(s) or chills Card: Denies: chest pain Resp: Denies: dyspnea GI: Reports: abdominal pain, nausea and vomiting; Denies: hematemesis, coffee ground emesis, hematochezia or melena : Denies: dysuria, urinary frequency or urinary urgency Musc: Denies: neck pain or back pain Skin/Breast: Denies: rash PFSH ED 2 PFSH: Medical History Allergy to alpha-gal Environmental and seasonal allergies Allergic reaction to food Food allergy Encounter for screening for cardiovascular disorders Medication management Irregular menses Acne vulgaris Dysphagia GERD (gastroesophageal reflux disease) Chronic nausea Chronic constipation Anxiety Migraine with aura and during the week before the period Hyperhidrosis Anxiety Surgical History H/O oral surgery Hx of tonsillectomy Family History Father Hypertension Heart disease Grandfather Colon cancer Maternal great grandfather Heart disease Paternal grandfather Diabetes Pateranl grandfather Grandmother Diabetes Maternal grandmother Other Family history of thyroid problem Denies family history of Ovarian cancer Hyperlipidemia Breast cancer Uterine cancer Stroke Social History Smoking and tobacco/nicotine status: never used tobacco/nicotine Second hand smoke exposure: No Alcohol intake: never Substance/Drug Use: never Additional social history: - Tobacco use: Denies Alcohol use: Denies Drug use: Denies Physical Exam 2 Const: GENERAL APPEARANCE: cooperative ORIENTATION/CONSCIOUSNESS: Yes awake, Yes oriented to person, Yes oriented to place and Yes oriented to time HENMT: COMMON NORMALS: normocephalic, atraumatic and hearing grossly normal bilaterally HEAD & SCALP: normocephalic and atraumatic Resp: COMMON NORMALS: normal respiratory effort, No retractions, No use of accessory muscles and clear to auscultation bilaterally AUSCULTATION: clear to auscultation bilaterally Cardio: COMMON NORMALS: regular rate, regular rhythm and No murmurs present (Cardio) RATE: regular rate RHYTHM: regular rhythm GI: COMMON NORMALS: Soft to palpation and No hepatosplenomegaly present A USCULTATION: Yes normoactive bowel sounds PALPATION: Yes Soft to palpation, No Tenderness to palpation present (GI), No Guarding due to palpation present (GI) and Yes No hepatosplenomegaly present Extremity: COMMON NORMALS: normal to inspection, capillary refill normal, no clubbing, cyanosis or edema, no calf tenderness and no pedal edema Neuro: SENSORIUM/ORIENTATION: Yes oriented to person, Yes oriented to place and Yes oriented to time Skin: COMMON NORMALS: no rashes or lesions noted GENERAL SKIN EXAM: no rashes or lesions noted Course 2 Vital Signs: Vital signs: Vital Signs Temperature 98 F 04/08/25 06:14 Pulse Rate 88 04/08/25 08:46 Respiratory Rate 20 H 04/08/25 06:14 Blood Pressure 94/52 04/08/25 08:46 Pulse Oximetry 99 04/08/25 08:46 Oxygen Delivery Me thod Room Air 04/08/25 08:28 MDM - Abdominal Pain Medical Decision Making Exam room fairly unremarkable her generalized symptoms suggestive of of biliary colic. Ultrasound shows multiple gallbladder polyps. Some of her symptoms could also likely be reflux. We will start her on pantoprazole 40 mg daily. Will set her up for outpatient follow-up with the general surgery for further evaluation including possible EGD or HIDA and/or HIDA scan. Medical Records I reviewed the patient's medical records. Lab Data I reviewed the patient's lab results. 04/08/25 06:42 04/08/25 06:42 Labs/Radiology: Radiology Impressions Gallbladder Ultrasound 04/08/25 06:59 IMPRESSION: Multiple small gallbladder polyps. Laboratory Results WBC 8.01 10^3/uL (3.29-11.43) 04/08/25 06:42 RBC 4.20 10^6/uL (3.85-5.65) 04/08/25 06:42 Hgb 12.90 g/dL (11.27-16.99) 04/08/25 06:42 Hct 39.1 % (36-47) 04/08/25 06:42 MCV 93.1 fl (85-98) 04/08/25 06:42 MCH 30.7 pg (27-33) 04/08/25 06:42 MCHC 33.0 g/dL (30-55) 04/08/25 06:42 RDW 12.8 % (12.1-15.1) 04/08/25 06:42 Plt Count 483 10^3/cmm (157-399) H 04/08/25 06:42 MPV 9.3 fL (7.4-10.4) 04/08/25 06:42 Neut % (Auto) 68.4 % 04/08/25 06:42 Lymph % (Auto) 22.0 % 04/08/25 06:42 Luna % (Auto) 8.6 % 04/08/25 06:42 Eos % (Auto) 0.2 % 04/08/25 06:42 Baso % (Auto) 0.6 % 04/08/25 06:42 Neut # (Auto) 5.47 10^3/uL (1.8-7.7) 04/08/25 06:42 Lymph # (Auto) 1.8 10^3/uL (0.8-4.8) 04/08/25 06:42 Luna # (Auto) 0.7 10^3/uL (0.2-0.9) 04/08/25 06:42 Eos # (Auto) 0.0 10^3/uL (0.0-0.8) 04/08/25 06:42 Baso # (Auto) 0.1 10^3/uL (0.0-0.1) 04/08/25 06:42 Nucleated RBC % (auto) 0 % 04/08/25 06:42 Nucleated RBCs # 0.0 /100WBC 04/08/25 06:42 Sodium 139 mmol/L (136-145) 04/08/25 06:42 Potassium 4.0 mmol/L (3.5-5.1) 04/08/25 06:42 Chloride 107 mmol/L (98-107) 04/08/25 06:42 Carbon Dioxide 22 mmol/L (22-29) 04/08/25 06:42 Anion Gap 14.0 (5-19) 04/08/25 06:42 BUN 14 mg/dL (6-20) 04/08/25 06:42 Creatinine 0.6 mg/dL (0.5-0.9) 04/08/25 06:42 GFR Calculation 113.8 mL/min (90-130) 04/08/25 06:42 Glucose 110 mg/dL (65-115) 04/08/25 06:42 Calculated Osmolality 289 mOsm/kg (285-295) 04/08/25 06:42 Calcium 9.1 mg/dL (8.5-10.5) 04/08/25 06:42 Total Bilirubin 0.4 mg/dL (0.15-1.2) 04/08/25 06:42 AST 10 U/L (0-32) 04/08/25 06:42 ALT 9 U/L (0-33) 04/08/25 06:42 Alkaline Phosphatase 36 U/L (35-105) 04/08/25 06:42 Total Protein 6.9 g/dL (6.6-8.7) 04/08/25 06:42 Albumin 4.2 g/dL (3.5-5.2) 04/08/25 06:42 Globulin 2.7 g/dL (1.3-4.6) 04/08/25 06:42 Lipase 31 U/L (13-60) 04/08/25 06:42 HCG, Qual Negative (Negative) 04/08/25 06:42 Urine Color Yellow (Yellow) 04/08/25 06:48 Urine Appearance Clear (CLEAR) 04/08/25 06:48 Urine pH 6.5 (5-7) 04/08/25 06:48 Ur Specific [place] 1.012 (1.005-1.030) 04/08/25 06:48 Urine Protein Negative (Negative) 04/08/25 06:48 Urine Glucose (UA) Negative (Normal) 04/08/25 06:48 Urine Ketones Negative (Negative) 04/08/25 06:48 Urine Blood Negative (Negative) 04/08/25 06:48 Urine Nitrate Negative (Negative) 04/08/25 06:48 Urine Bilirubin Negative (Negative) 04/08/25 06:48 Urine Urobilinogen 1.0 mg/dL (Negative) 04/08/25 06:48 Ur Leukocyte Esterase Negative (Negative) 04/08/25 06:48 Urine RBC 0-2 /hpf (0-2) 04/08/25 06:48 Urine WBC 0-5 /hpf (0-5) 04/08/25 06:48 Ur Squamous Epith Cells 0-5 /hpf (0-5) 04/08/25 06:48 Amorphous Sediment Not Reportable 04/08/25 06:48 Urine Bacteria None seen /hpf (NONE) 04/08/25 06:48 Hyaline Casts 0-4 /lpf H 04/08/25 06:48 All radiology interpretation(s) finalized by discharge Discharge Plan Discharge Patient Disposition: Home Clinical Impression: Biliary colic, Gallbladder polyp, GERD (gastroesophageal reflux disease) Condition: Stable Prescriptions: New pantoprazole 40 mg tablet,delayed release (DR/EC) 40 mg PO DAILY Qty: 30 0RF No Action citalopram 20 mg tablet 20 mg PO DAILY Qty: 90 2RF Women's Daily Multivitamin 18-400 mg-mcg Tablet 1 tab PO DAILY Probiotic 10 billion cell Capsule 10,000 mmu cells PO DAILY Discharge Orders: Discharge ED (Routine); Ordered 04/08/25 Ordered By: Frank Locke Referrals: Chilango Barr MD [Family Provider, [facility]] MARGAUX Machuca FNP [Primary Care Provider, [facility]] Patient Instructions: Abdominal Pain (ED), Opioid Safety, Pain Management, Patient Portal & Dennis Instructions Activity Restrictions/Additional Instructions: Thank you for choosing [email or web address] for your healthcare needs today. It is very important that you follow up as instructed or that you return to the Emergency Department should you have concerns or if your condition changes or worsens in any way. You were seen in the emergency room for abdominal pain. Your symptoms are suggestive of biliary colic and reflux. The ultrasound showed multiple gallbladder polyps but no stones your white count and liver functions were all normal. Will recommend that you follow-up with general surgery for further evaluation additionally recommend that you start pantoprazole 40 mg daily. Print Language: Citizen Of [place] Coding Level of Care Code ED Shipping Specialist for Elizabet Bowden
[2025-04-08 06:56] LABS: Hematocrit 39.1 % (36-47); Hemoglobin 12.90 g/dL (11.27-16.99); Mean Corpuscular HGB Conc 33.0 g/dL (30-55); Mean Corpuscular Hemoglobin 30.7 pg (27-33); Mean Corpuscular Volume 93.1 fl (85-98); Nucleated Red Blood Cells % 0 %; Platelet Count 483 10^3/cmm (157-399); Red Blood Count 4.20 10^6/uL (3.85-5.65); White Blood Count 8.01 10^3/uL (3.29-11.43)
[2025-04-08 06:58] VITALS: BP 117/60; PULSE 87; O2SAT 98
--- NOTE | 2025-04-08 06:59 | USR_ITS ---
PROCEDURE INFORMATION: Exam: US Abdomen, Limited; Right Upper Quadrant Exam date and time: 04/08/2025 7:41 AM Age: 34 years old Clinical indication: Abdominal pain; Epigastric; Additional info: Abd pain TECHNIQUE: Imaging protocol: Real time ultrasound of the abdomen with image documentation. Limited exam focused on the right upper quadrant. COMPARISON: No relevant prior studies available. FINDINGS: Liver: Normal. No masses. Gallbladder: The gallbladder wall is borderline thickened at 3 mm. There are numerous tiny gallbladder polyps present. The largest is approximately 8 mm in size. Biliary ducts: Normal. No stones. No dilation. Pancreas: Visualized pancreas is unremarkable. Right kidney: Normal. No mass. No hydronephrosis. US/US gall bladder [id number] IMPRESSION: Multiple small gallbladder polyps.
[2025-04-08 07:08] LABS: Alanine Aminotransferase 9 U/L (0-33); Albumin Level 4.2 g/dL (3.5-5.2); Alkaline Phosphatase 36 U/L (35-105); Anion Gap 14.0 (5-19); Aspartate Amino Transferase 10 U/L (0-32); Blood Urea Nitrogen 14 mg/dL (6-20); Calcium 9.1 mg/dL (8.5-10.5); Carbon Dioxide 22 mmol/L (22-29); Chloride 107 mmol/L (98-107); Creatinine Clr Calc Pharmacy 117.4323; Globulin 2.7 g/dL (1.3-4.6); Glucose 110 mg/dL (65-115); Lipase 31 U/L (13-60); Osmolality Calculated 289 mOsm/kg (285-295); Potassium 4.0 mmol/L (3.5-5.1); Sodium 139 mmol/L (136-145); Total Protein 6.9 g/dL (6.6-8.7)
[2025-04-08 07:10] LABS: HCG, Serum Qual Negative (Negative)
[2025-04-08 07:30] VITALS: BP 139/73
[2025-04-08 07:32] LABS: Glucose Urine UA Negative (Normal); Nitrate Urine Negative (Negative); Specific Gravity, Urine 1.012 (1.005-1.030)
[2025-04-08 07:35] LABS: Add Urine Microscopic? YES
[2025-04-08 08:28] VITALS: BP 101/62; PULSE 90; O2SAT 98
[2025-04-08 08:46] VITALS: BP 94/52; PULSE 88; O2SAT 99
== END 2025-04-08 08:46 | disposition home or self-care (01) ==
PROVIDERS: Emergency Provider Family Medicine; Family Provider Family Medicine; PCP Nurse Practitioner Family
DX: K80.50 Calculus of bile duct without cholangitis or cholecystitis without obstruction (principal); K21.9 Gastro-esophageal reflux disease without esophagitis
CPT/HCPCS: 76705; 80053; 81001; 83690; 84703; 85025; 99284

== ENCOUNTER → 2025-09-05 08:42 | Outpatient (BNVA) | payer BC, SELFPAY | PROVIDERS: PCP Nurse Practitioner Family; Visit Provider Nurse Practitioner Family | DX: R10.31 Right lower quadrant pain (principal) | CPT/HCPCS: 85025 ==